=== PATIENT | female | born 1985 | race Caucasian/White ===

== ENCOUNTER → 2016-08-19 | Outpatient (REF) | payer OTHER ==
[~2016-08-19] MED LIST: IBUP80TA PO; PRENTAB66 PO; TYLE325T5 PO; ZANTTAB PO
== END ==
LOC: M LAB REF 13:01
PROVIDERS: ATTEND Specialist
DX: Z34.83 Encounter for supervision of other normal pregnancy, third trimester (principal)

== ENCOUNTER 2016-09-08 06:42 | Inpatient (IN) | payer OTHER ==
[2016-09-08] VITALS (11 sets, daily range): BP systolic 108–131; BP diastolic 66–78
[~2016-09-08] VITALS: Ht 170.2 cm; Wt 86.0 kg
[2016-09-08] MEDS ORDERED: PREV15CA11 PO (06:48)
[2016-09-08] MEDS ORDERED: IRON65TA PO (06:48)
[2016-09-08] MEDS ORDERED: miSOPROStol 50 MCG 1/2 TAB (S0191) PO SCH (07:45)
--- NOTE | 2016-09-08 07:53 | HPE ---
DATE OF ADMISSION: 09/08/2016 30-year-old 3, para 1-1-0-1 female at 38 and 3 by last menstrual period (LMP) consistent with a six week ultrasound, estimated date of confinement (EDC) 09/19/2016 presents for labor induction. Indication is a history of a near term intrauterine demise (IUFD) in her previous . The cause of the intrauterine demise previously was unknown. COURSE: The patient initiated care at 13 weeks gestation. Her blood pressure was 130/82. Weight 180 pounds. course was unremarkable. She did have antepartum testing with nonstress tests on a regular basis due to the history of IUFD. She had ultrasound for growth which showed adequate growth. OBSTETRICAL HISTORY: 1. June 2013, 39 weeks, vaginal delivery 6 pound 9 ounce female , no complications. 2. August 2014, 36 and 2/7 weeks, vaginal delivery 7 pound male . This was an intrauterine demise. MEDICAL HISTORY: 1. Depression and anxiety. SURGERIES: None. ALLERGIES: No known drug allergies. SOCIAL HISTORY: The patient is . She denies cigarettes, alcohol or drug use. FAMILY HISTORY: Noncontributory. PHYSICAL EXAMINATION: Blood pressure 118/72, weight 200 pounds. She is in no apparent distress. Head and neck exams normal. Lungs clear. Heart regular rate and rhythm. Abdomen nontender, gravid. heart tones category 1. Cervix 3 cm, 70%, -2 station, posterior, vertex. Extremities nontender. LABORATORIES: Blood type A positive. Rubella immune. RPR nonreactive. Hepatitis B and C negative. HIV negative. Group B Streptococcus (GBS) negative on 08/19/2016. ASSESSMENT: 30-year-old G3, P1 female at 38 and 3, with history of intrauterine demise in a prior , presents for labor induction. Patient on 09/08/2016. The risks of induction were discussed.
[2016-09-08 08:30] LABS: MEAN CORPUSCULAR HEMOGLOBIN 28.1 pg (27.0-33.0); MEAN CORPUSCULAR HGB CONC 33.5 g/dl (32.0-36.5); MEAN CORPUSCULAR VOLUME 83.8 fl (80.0-96.0); RED CELL DISTRIBUTION WIDTH 14.6 % (11.5-14.5); WHITE BLOOD COUNT 8.2 K/mm3 (4.0-10.0)
[2016-09-08] MEDS ORDERED: OXYTOCIN 30 UNITS IN 0.9% NaCl 500ML IV BAG (J2590) As Ordered ONE (11:40)
[2016-09-08] MEDS ORDERED: OXYTOCIN DRIP 30 UNITS in APPROPRIATE DILUENT 1 EA IV SCH (11:45)
[2016-09-08] MEDS: LR 1,000 ML IV SCH ×2 (11:46→17:13)
[2016-09-08] MEDS ORDERED: FENTANYL 2MCG/ML ROPIVACAINE 0.2% NACL 250 ML CADD As Ordered ONE (16:51)
[2016-09-08] MEDS ORDERED: LACTATED RINGER'S 1000 ML IV PRN (18:30)
[2016-09-08] MEDS ORDERED: ONDANSETRON 4MG/2ML VIAL (J2405) IV PRN ×2 (18:30→21:45)
[2016-09-08] MEDS ORDERED: FENTANYL/ROPIVACAINE/NACL CADD 250 ML EPIDURAL SCH (18:30)
[2016-09-08] MEDS ORDERED: NALOXONE INJ 0.4 MG/1 ML VIAL (J2310) IV PRN (18:30)
[2016-09-08] MEDS ORDERED: EPIDURAL/PCA KEYS XX PRN (18:30)
[2016-09-08] MEDS ORDERED: ePHEDrine SULFATE 25 MG/5 ML(5MG/ML) SYRINGE IV PRN (18:30)
[2016-09-08] MEDS ORDERED: diphenhydrAMINE INJ 50MG/ML VIAL (J1200) IV PRN (18:30)
[2016-09-08] MEDS ORDERED: EPIDURAL COMMENT XX SCH (18:30)
[2016-09-08] MEDS ORDERED: REFRIGERATOR IV KEYS XX PRN (18:30)
[2016-09-08] MEDS ORDERED: ACETAMINOPHEN 500 MG TAB PO PRN (21:45)
[2016-09-08] MEDS ORDERED: MEASLES,MUMPS,RUBELLA VACCINE INJ (MMR-II) (90707) SC SCH (21:45)
[2016-09-08] MEDS ORDERED: OXYTOCIN DRIP 30 UNITS in APPROPRIATE DILUENT 1 EA IV ONE (21:45)
[2016-09-08] MEDS ORDERED: DOCUSATE SODIUM 100 MG CAP PO PRN (21:45)
[2016-09-08] MEDS ORDERED: DIBUCAINE 1% OINTMENT 30GM TOP PRN (21:45)
[2016-09-08] MEDS ORDERED: RHOGAM 300 MCG (1500 IU) INJ (J2790) IM SCH (21:45)
[2016-09-08] MEDS ORDERED: METHYLERGONOVINE MALEATE 0.2 MG TAB PO PRN (21:45)
[2016-09-09] MEDS: IBUPROFEN 800 MG TAB PO PRN ×2 (05:51→15:48)
[2016-09-09 05:57] VITALS: BP 135/67
--- NOTE | 2016-09-09 05:57 | DN ---
DATE OF DELIVERY: 09/08/2016 PREDELIVERY DIAGNOSIS: 38-3/7 weeks gestation, history of prior intrauterine demise. POST DELIVERY DIAGNOSIS: Delivered. PROCEDURE: Spontaneous vaginal delivery. SILK SPOTTER: Dr. Tyree Jara ANESTHESIA: Epidural. ESTIMATED BLOOD LOSS: 300 mL. FINDINGS: 7 pound 1 ounce male , Apgars 9/10. DELIVERY SUMMARY: After a short second stage, the patient spontaneously delivered a 7 pound 1 ounce male under epidural anesthesia. There was no nuchal cord. Shoulders delivered spontaneously with ease. The infant cried spontaneously and was handed to the mother. The cord was doubly clamped and cut. The placenta delivered spontaneously and appeared to be intact. Patient received IV Pitocin immediately after delivery of the placenta. There were no vaginal lacerations present. Sponge counts were correct.
[2016-09-09] MEDS: PRENATAL VITAMIN TAB PO SCH (08:10)
[2016-09-09 10:00] VITALS: BP 128/70
[2016-09-09 14:00] VITALS: BP 116/57
[2016-09-09] MEDS: PERCOCET 5MG/325MG TAB PO PRN ×2 (16:58→20:50)
[2016-09-09 17:58] VITALS: BP 133/68
[2016-09-10] MEDS: IBUPROFEN 800 MG TAB PO PRN ×2 (02:45→11:01)
[2016-09-10] MEDS: PERCOCET 5MG/325MG TAB PO PRN ×3 (03:46→14:05)
[2016-09-10 05:55] VITALS: BP 132/61
[2016-09-10] MEDS ORDERED: HYDR-3713 PO (07:00)
[2016-09-10] MEDS: PRENATAL VITAMIN TAB PO SCH (08:18)
[2016-09-10] MEDS ORDERED: OXYC1TAB23 PO (08:25)
[2016-09-10] MEDS ORDERED: IBUP-1114 PO (08:25)
[2016-09-10] MEDS ORDERED: IBUP600T26 PO (09:10)
[2016-09-10] MEDS ORDERED: COLA100C PO (09:11)
== END 2016-09-10 16:05 | disposition home or self-care (01) | DRG 775 ==
LOC: M LDI 06:42 → M OBS 23:20
PROVIDERS: ADMIT Advanced Practice Midwife; ATTEND Specialist
PROC: 10E0XZZ Delivery of Products of Conception, External Approach (ICD-10-PCS; principal; 2016-09-08)
PROC: 3E033VJ Introduction of Other Hormone into Peripheral Vein, Percutaneous Approach (ICD-10-PCS; 2016-09-08)
DX: O80 Encounter for full-term uncomplicated delivery (principal); Z3A.38 38 weeks gestation of pregnancy; Z37.0 Single live birth

== ENCOUNTER → 2019-03-07 | Outpatient (REF) | payer OTHER ==
[~2019-03-07] MED LIST changes: +COLA100C5 PO; +HYDR-3713 PO; +IBUP-1022 PO; +IBUP-1114 PO; +IRON65TA PO; +OXYC1TAB23 PO; +PREV15CA18 PO
[2019-03-11 14:09] LABS: HPV HYBRID CAPTURE II Negative (Negative)
== END ==
LOC: M LAB REF 13:40
PROVIDERS: ATTEND Specialist
DX: Z12.4 Encounter for screening for malignant neoplasm of cervix (principal)

== ENCOUNTER → 2019-06-05 | Outpatient (REF) | payer OTHER ==
[2019-06-05 17:26] LABS: BASO % 0.9 % (0.0-1.0); EOS % 0.7 % (0.0-3.0); HEMATOCRIT 42.3 % (36.0-47.0); HEMOGLOBIN 13.4 g/dl (12.0-15.5); LYMPH # 2.2 10^3/uL (1.5-5.0); LYMPH % 49.3 % (24.0-44.0); MEAN CORPUSCULAR HEMOGLOBIN 29.1 pg (27.0-33.0); MEAN CORPUSCULAR HGB CONC 31.7 g/dl (32.0-36.5); MONO # 0.3 10^3/uL (0.0-0.8); MONO % 6.4 % (0.0-5.0); NEUTROPHILS # 1.9 10^3/uL (1.5-8.5); NEUTROPHILS % 42.3 % (36.0-66.0); PLATELET COUNT, AUTOMATED 305 10^3/uL (150-450); WHITE BLOOD COUNT 4.5 10^3/uL (4.0-10.0)
[2019-06-05 17:28] LABS: ALBUMIN 4.1 GM/DL (3.2-5.2); ALT/SGPT 45 U/L (12-78); BILIRUBIN,TOTAL 0.3 MG/DL (0.2-1.0); BLOOD UREA NITROGEN 11 MG/DL (7-18); CALCIUM LEVEL 9.6 MG/DL (8.5-10.1); CARBON DIOXIDE LEVEL 28 MEQ/L (21-32); CHLORIDE LEVEL 106 MEQ/L (98-107); CHOLESTEROL LEVEL 175 MG/DL (<200); CREATININE FOR GFR 0.85 MG/DL (0.55-1.30); FREE T4 0.97 NG/DL (0.76-1.46); GLOMERULAR FILTRATION RATE > 60.0 (>60); GLUCOSE, FASTING 93 MG/DL (70-100); HDL CHOLESTEROL 50 MG/DL (>40); LDL CHOLESTEROL 97 MG/DL (<100); NON-HDL-C 125 MG/DL; POTASSIUM SERUM 4.2 MEQ/L (3.5-5.1); SODIUM LEVEL 140 MEQ/L (136-145); TOTAL PROTEIN 8.5 GM/DL (6.4-8.2); TRIGLYCERIDES LEVEL 141 MG/DL (<150)
[2019-06-05 17:29] LABS: TOTAL 25(OH) VITAMIN D 23.6 NG/ML (30.0-100.0)
== END ==
LOC: M SFHCLERA 10:21
PROVIDERS: ATTEND Physician Assistant
DX: Z13.220 Encounter for screening for lipoid disorders (principal); F41.8 Other specified anxiety disorders; Z13.21 Encounter for screening for nutritional disorder

== ENCOUNTER → 2020-03-26 | Outpatient (REF) | payer OTHER ==
[2020-04-28 11:06] LABS: BASO % 0.5 % (0.0-1.0); EOS % 0.1 % (0.0-3.0); HEMATOCRIT 39.6 % (36.0-47.0); HEMOGLOBIN 12.6 g/dl (12.0-15.5); LYMPH # 1.6 10^3/uL (1.5-5.0); LYMPH % 19.8 % (24.0-44.0); MEAN CORPUSCULAR HEMOGLOBIN 28.3 pg (27.0-33.0); MEAN CORPUSCULAR HGB CONC 31.8 g/dl (32.0-36.5); MONO # 0.4 10^3/uL (0.0-0.8); MONO % 5.3 % (0.0-5.0); NEUTROPHILS # 5.9 10^3/uL (1.5-8.5); NEUTROPHILS % 73.9 % (36.0-66.0); PLATELET COUNT, AUTOMATED 338 10^3/uL (150-450); RED BLOOD COUNT 4.45 10^6/uL (4.00-5.40); WHITE BLOOD COUNT 7.9 10^3/uL (4.0-10.0)
[2020-05-05 13:35] LABS: CHLAMYDIA DNA AMPLIFICATION NEGATIVE (NEGATIVE); GC DNA AMPLIFICATION NEGATIVE (NEGATIVE)
[2020-05-11 10:23] LABS: HEPATITIS C VIRUS ABY INDEX 0.2 INDEX (<0.8); HIV 1&2 SCREEN CENTAUR NEGATIVE (NEGATIVE)
== END ==
LOC: M SFHCWAGY 08:12
PROVIDERS: ATTEND Specialist
DX: Z34.81 Encounter for supervision of other normal pregnancy, first trimester (principal)

== ENCOUNTER → 2020-06-07 | Outpatient (CLI) | payer OTHER ==
--- NOTE | 2020-06-07 13:41 | REP ---
INDICATION: ANATOMY COMPARISON: None. TECHNIQUE: Transabdominal obstetrical ultrasound with color Doppler evaluation. FINDINGS: Examination demonstrates a single live intrauterine in cephalic presentation. motion is identified by technologist. Placenta is noted anterior and grade 1 without evidence for placenta previa or abruption. Amniotic fluid volume is normal. Cervix measures 3.0 cm in length and appears closed.. Gestational age by LMP with VARINDER . Gestational age by current measurements 20 weeks 0 days with VARINDER 10/25/2020. FHR equals 143 beats per minute. BPD: 4.6 cm 20 weeks 0 days HC: 16.8 cm 19 weeks 3 days AC: 14.5 cm 19 weeks 5 days FL: 3.4 cm 20 weeks 5 days HL: 3.0 cm nineteen weeks 6 days HC/AC: 1.16 Estimated weight 332 grams (54thpercentile). Anatomical assessment demonstrates normal structures including cranium, choroid plexus, cavum, cerebellum/posterior fossa, facial features, lungs, four-chamber heart/ventricular outflow tracts, diaphragm, stomach, cord insertion/three-vessel cord, kidneys/bladder, spine, and extremities. IMPRESSION: Single live intrauterine in cephalic presentation demonstrating appropriate estimated weight. Anatomical assessment is complete and normal. <Electronically signed by Clem Shay > 06/07/20 [id number]
== END ==
LOC: M WHC 10:16
PROVIDERS: ATTEND Specialist
DX: Z34.82 Encounter for supervision of other normal pregnancy, second trimester (principal)

== ENCOUNTER → 2020-07-24 | Outpatient (REF) | payer OTHER ==
[2020-07-24 13:49] LABS: HEMOGLOBIN 10.4 g/dl (12.0-15.5); MEAN CORPUSCULAR HGB CONC 31.5 g/dl (32.0-36.5); MEAN CORPUSCULAR VOLUME 88.9 fl (80.0-96.0); PLATELET COUNT, AUTOMATED 272 10^3/uL (150-450); RED BLOOD COUNT 3.71 10^6/uL (4.00-5.40); WHITE BLOOD COUNT 8.7 10^3/uL (4.0-10.0)
== END ==
LOC: M PLALAB 09:23
PROVIDERS: ATTEND Specialist
DX: Z34.82 Encounter for supervision of other normal pregnancy, second trimester (principal); Z3A.00 Weeks of gestation of pregnancy not specified

== ENCOUNTER → 2020-07-31 | Outpatient (CLI) | payer OTHER ==
--- NOTE | 2020-07-31 12:52 | REP ---
INDICATION: GROWTH. COMPARISON: None. TECHNIQUE: Multiple ultrasonographic images of the gravid uterus. FINDINGS: There is a single intrauterine gestation in a cephalic presentation. The placenta is anterior with grade 2 maturity. There is no placenta previa. The cervix measures 3.3 cm length. heart rate is 147 beats per minute. Amniotic fluid volume subjectively is normal. biophysical profile: breathing 2 tone 2 movement 2 Amniotic fluid volume 2 Total BPP-8/8. Gestational age by ultrasound today is 27 weeks 3 days with an VARINDER of 10/27/2020. Gestational age by the 1st ultrasound is 27 weeks 5 days with an VARINDER of 10/25/2020 Estimated weight is 1000 g, 2 lb-3 oz. This is the 15th percentile for 27 weeks 5 days. Umbilical artery 1 Doppler ultrasound: PSV: 32.9 centimeters/second, EDV 13.2 centimeters/second. S/D 2.49 (2.12-4.41). Resistive index 0.60 (0.55-0.78). Umbilical artery 2 Doppler ultrasound: PSV 34.2 centimeters/second EDV 10.6 centimeters/second. S/D 3.23 (2.12-4.41). Resistive index 0.69 ( 0.55-0.78). IMPRESSION: Intrauterine gestation with dating, biophysical profile and umbilical artery Doppler assessment as above. <Electronically signed by Bryan Gan > 07/31/20 [id number]
== END ==
LOC: M WHC 08:12
PROVIDERS: ATTEND Obstetrics & Gynecology
DX: O09.292 Supervision of pregnancy with other poor reproductive or obstetric history, second trimester (principal); Z3A.27 27 weeks gestation of pregnancy

== ENCOUNTER 2020-09-05 10:41 | Outpatient (CLI) | payer OTHER ==
[~2020-09-05] VITALS: Ht 170.2 cm; Wt 90.0 kg
[2020-09-05 11:03] VITALS: BP 122/78
[2020-09-05] MEDS ORDERED: PRENTAB9 PO (11:19)
[2020-09-05] MEDS ORDERED: OMEP40CA97 PO (11:19)
[2020-09-05] MEDS ORDERED: PROZ10CA7 PO (11:19)
--- NOTE | 2020-09-05 12:14 | HPEPDOC ---
Obstetrical History & Physical General Date of Admission 09/05/20 History of Present Illness Subjective/HPI: 34-year-old at 32+6 weeks' gestation. Final EDC of 10/25/2020 by LMP consistent with a first trimester ultrasound. Presents today complaining of pink tinged vaginal discharge noted with wiping after using the restroom. Denies any bright red vaginal bleeding, passage of blood clots, or loss of fluid. Reports regular movement. She is not complaining of any uterine contractions or abdominal/pelvic pain Denies headach e, visual changes, shortness of breath, chest pain. Denies any recent intercourse. course significant for history of stillborn at 36 weeks in 2015. PMH/SH: depression/anxiety, no surgeries, no h/o cervical dysplasia. H/o STI/CT treated. Objective: Normotensive. Normal heart rate. Afebrile Abdomen soft, nontender, nondistended. Uterine fundus , nontender. Extremities nonedematous, nontender Pelvic: Sterile speculum exam reveals no pooling, no vaginal bleeding, no abnormal discharge or foul odor. Sterile vaginal/cervical exam reveals a closed long thick cervix. Ectropion cervix is friable/bleeding induced with contact Transvaginal ultrasound, limited: Cervical length 3.6 cm. No dynamic changes/funneling. Transabdominal ultrasound, limited: Cephalic presentation, MVP 5.5 cm, multiple 2 x 2 centimeters pockets of fluid EFM: Reactive, moderate variability, no decelerations [place]: No contractions Assessment/plan: 34 year-old at 32+6 weeks' gestation. No evidence of infection, premature ruptured membranes, active labor, advanced cervical dilation, or shortened cervical length. Current maternal and condition is reassuring. -Routine third trimester precautions were reviewed -Follow-up in the office as scheduled Past Medical History Allergies Coded Allergies: No Known Allergies (Unverified , 06/20/13) Medications Scheduled Fluoxetine HCl (Prozac) 10 Mg Capsule, 1 CAP PO DAILY Omeprazole (Omeprazole) 40 Mg Capsule.dr, 40 MG PO DAILY No.137/Iron/Folic Acd ( Vitamin Tablet) 1 Each Tablet, 1 TAB PO DAILY Physical Examination Vital Signs/I&O Vital Signs Date Time Temp Pulse Resp B/P (MAP) Pulse Ox O2 Delivery O2 Flow Rate FiO2 09/05/20 11:03 98.0 92 16 122/78 (93) CLAUDE DREW DO Sep 05, 2020 12:14
== END 2020-09-05 12:04 | disposition home or self-care (01) ==
LOC: M LDO 10:41
PROVIDERS: ATTEND Obstetrics & Gynecology
DX: O26.853 Spotting complicating pregnancy, third trimester (principal); Z3A.01 Less than 8 weeks gestation of pregnancy
CPT/HCPCS: 59025; 76815; G0378; G0463

== ENCOUNTER → 2020-09-06 | Outpatient (CLI) | payer OTHER ==
[~2020-09-06] MED LIST changes: +OMEP40CA97 PO; +PRENTAB9 PO; +PROZ10CA7 PO
--- NOTE | 2020-09-06 15:13 | REP ---
INDICATION: POOR OBSTETRICAL HX,GROWTH. COMPARISON: Comparison study July.. TECHNIQUE: Transabdominal obstetric sonography. FINDINGS: Scanning through the gravid uterus demonstrates a viable single intrauterine gestation in cephalic lie. motion is observed and heart rate is recorded at 134 beats per minute. A anterior placenta is seen, grade 2, without evidence of placenta previa. Amniotic fluid is subjectively normal. Closed cervical length is measured at 3.1 cm transabdominally. No extrauterine abnormality is observed. Amniotic fluid is subjectively normal. JUWAN is normal at 18.2 cm anatomic survey is not performed with this exam.. Biometry chart: BPD 8.2 cm, 32 weeks 6 days Head circumference 30.2 cm, 33 weeks 4 days Abdominal circumference 27.8 cm, 31 weeks 6 days Femur length 6.2 cm, 32 weeks 2 days Humeral length 5.7 cm, 33 weeks 0 days HC AC ratio normal 1.09 Cephalic index normal 0.75 Estimated weight 1927 g, 4 lb 3 oz, 21st percentile for 33 weeks 0 days IMPRESSION: Viable single intrauterine gestation at 32 weeks 5 days by today's composite sonographic criteria. VARINDER by today's sonography October 27, 2020. No complication identified. Expected gestational age estimate based on prior sonography is 33 weeks 0 days. VARINDER by prior sonography October 25, 2020. <Electronically signed by Troy Hopkins > 09/06/20 [id number]
== END ==
LOC: M WHC 08:57
PROVIDERS: ATTEND Obstetrics & Gynecology
DX: O09.293 Supervision of pregnancy with other poor reproductive or obstetric history, third trimester (principal); Z36.9 Encounter for antenatal screening, unspecified; Z3A.32 32 weeks gestation of pregnancy

== ENCOUNTER → 2020-09-25 | Outpatient (REF) | payer OTHER | LOC: M SFHCWAGY 11:35 | PROVIDERS: ATTEND Specialist | DX: O09.93 Supervision of high risk pregnancy, unspecified, third trimester (principal) ==

== ENCOUNTER 2020-10-10 07:09 | Inpatient (IN) | payer OTHER ==
[~2020-10-10] VITALS: Ht 170.2 cm; Wt 90.4 kg
[2020-10-10] VITALS (26 sets, daily range): BP systolic 110–146; BP diastolic 57–86
--- OUTSIDE RECORDS SUMMARY | 2020-10-10 07:12 | CCD ---
Author Author [facility] Organization [facility] Address Unknown Phone Unavailable Care Team Providers Care Multifocal Button Generator Name Role Phone Shaniqua Mendeznathan Unavailable PROBLEMS Type Condition ICD9-CM Code [id number] Code Onset Dates Condition S tatus SNOMED Code Notes Problem Recurrent major depressive disorder, in partial remission F33.41 Active 73720965 Problem Intractable migraine without aura and without st atus migrainosus G43.019 Active 724986758 Problem Other chronic pain G89.29 Active 28693368 Problem Supervision of other normal Z34.80 Ac tive 789703341 Problem Anemia affecting in third trimester O99. 013 Active 45227531 Problem Anxiety with depression F41.8 Active 04661726 6 Problem Adjustment disorder with depressed mood F43.21 Active 90577795 Problem Generalized anxiety disorder F41.1 Active 218 25736 Problem Major depressive disorder, recurrent, mild F33.0 Active 637659752 ALLERGIES No Known Allergies ENCOUNTERS from 1986 to 2020-09-06 Encounter Location Date Provider Diagnosis [facility] [place] [address] Aug, Rigoberto Mendez IMMUNIZATIONS Vaccine Route Administration Date Status TDAP 0.5mL (Boostrix) IM Intramuscular Aug 30, 2020 Administe red Influenza (6mo & up) Fluzone IM Intramuscular Aug 30, 2020 Ad ministered SOCIAL HISTORY Tobacco Use: Social History Observation Description Date Details (start date - stop date) Never Smoker Sex Assigned At : Social History Observation Description Sex Assigned At Unknown Education: Question Answer Notes Level of Education: Finished College Language: Question Answer Notes Languages spoken: Kosovan Languages spoken: Kosovan Mu-Ism: Question Answer Notes Mu-Ism 33 None Mu-Ism 33 None Drug and Alcohol Question Answer Notes Total Score: 0 Interpretation: No problems reported Alcohol Screening: Question Answer Notes Did you have a drink containing alcohol in the past year? No Did you have a drink containing alcohol in the past year? No Points 0 Points 0 Interpretation Negative Interpretation Negative Tobacco Use: Question Answer Notes Are you a: never smoker Are you a: never smoker REASON FOR REFERRAL No Information VITAL SIGNS No information MEDICATIONS Medication SIG (Take, Route, Frequency, Duration) Notes Start Da te End Date Status PROzac 10 MG 1 capsule Orally Once a day for 30 day(s) Aug, Active Ondansetron 4 MG 1 tablet on the tongue and a llow to dissolve Orally Once a day for 30 day(s) May, Not-Taking Pepcid 20 MG 1 tablet at bedtime as needed Orally Once a day for 30 day(s) May, Not-Taking Clomid 1 tab orally 5xmonth Not- Taking 27-1 MG 1 tablet Orally Once a day Active ClomiPHENE Citrate 50 MG 2 tablets Orally Once a day for 5 day(s ) Jul, Not-Taking Stool Softener 100 MG 1 capsule as needed for constipation O rally twice per day Aug, Active Ferrous Gluconate 324 (38 Fe) MG 1 tablet with water o r juice between meals Orally Twice per day for 30 day(s) Aug, Active Diflucan 150 MG 1 tablet Orally once for 1 day(s) Jul, Not-Taking Wellbutrin SR 150 MG 1 tablet in the morning Orally Once a day f or 30 day(s) Mar, Not-Taking Zoloft 50 MG 1 tablet Orally Once a day for 30 day(s) 2018 Not-Taking Omeprazole 40 MG 1 capsule 30 minutes before morning meal Orally Once a day for 30 day(s) Jul, Active PROCEDURES No Information RESULTS No Results REASON FOR VISIT bleeding MEDICAL (GENERAL) HISTORY Type Description Date Medical History Anxiety and Depression Medical History Infertility Surgical History No know Surgical history Hospitalization History child Goals Section No Information Health Concerns No Information MEDICAL EQUIPMENT No Information MENTAL STATUS No Information FUNCTIONAL STATUS No Information ASSESSMENTS No Information PLAN OF TREATMENT Medication Medication Name Sig Start Date Stop Date Ferrous Gluconate 324 (38 Fe) MG 1 tablet with water o r juice between meals Orally Twice per day for 30 day(s) Aug, PROzac 10 MG 1 capsule Orally Once a day for 30 day(s) Aug Stool Softener 100 MG 1 capsule as needed for constipation O rally twice per day Aug, Next Appt Details Provider Name:Rigoberto Mendez, 12:45:00 AM, [address] [place] [address], [phone], Provider Name:Kaitlyn Dumont, 2020-09 10:20:00 AM, [address] [place] [address], [phone], Provider Name:Tyree Jara, 2020-09-24 11:20:00 AM, [address] [place] [address], [phone], Provider Name:Tyree Jara, 2020-10-02 10:40:00 AM, [address] [place] [address], [phone], Provider Name:Rigoberto Mendez, 11:00:00 AM, [address] [place] [address], [phone], Insurance Providers Payer Name Payer Address Payer Phone Insured Name Patient Relati onship to Insured Coverage Start Date Coverage End Date AETNA [facility] [address] [facility] [id number] JUNE GUERRERO
--- OUTSIDE RECORDS SUMMARY | 2020-10-10 07:12 | CCD ---
Author Author [facility] Organization [facility] Address Unknown Phone Unavailable Care Team Providers Care Moisture Machine Tender Name Role Phone Tyree Jara Unavailable PROBLEMS Type Condition ICD9-CM Code [id number] Code Onset Dates Condition S tatus W/U Status Risk SNOMED Code Notes Problem Recurrent major depressive disorder, in partial remission F33.41 Active confirmed 79398743 Problem Intractable migraine without aura and without st atus migrainosus G43.019 Active confirmed 164065713 Problem Other chronic pain G89.29 Active confirmed 8 4743327 Problem Supervision of other normal Z34.80 Ac tive confirm 946209997 Problem Anemia affecting in third trimester O99. 013 Active confirmed 99865833 Problem Anxiety with depression F41.8 Active confirmed 358447076 Problem Adjustment disorder with depressed mood F43.21 Active confirmed 37215585 Problem Generalized anxiety disorder F41.1 Active confirme d 00681517 Problem Major depressive disorder, recurrent, mild F33.0 Active confirmed 033491178 ALLERGIES No Known Allergies ENCOUNTERS from 1986 to 2020-09-28 Encounter Location Date Provider Diagnosis [facility] [address] [place] [phone] 09 Sep, 2020 Tyree Jara High risk due to history of previous obstetrical problem in third trimester O09.293 IMMUNIZATIONS Vaccine Route Administration Date Status TDAP [...] College Language: Question Answer Notes Languages spoken: Guinean Languages spoken: Guinean Jewish: Question Answer Notes Jewish 33 None Jewish 33 None Drug and Alcohol Question Answer [...] REASON FOR REFERRAL No Information VITAL SIGNS Weight 200 lbs Sep, Weight-kg 90.72 kg Sep, Height 68.4 in Sep, BMI 30.055 kg/m2 Sep, Blood pressure systolic 138 mm Hg Sep, Blood pressure diastolic 94 mm Hg Sep, MEDICATIONS Medication SIG (Take, Route, Frequency, Duration) Notes Start Da te End Date Status Ondansetron 4 MG 1 tablet on the tongue and a llow to dissolve Orally Once a day for 30 day(s) May, Not-Taking ClomiPHENE Citrate 50 MG 2 tablets Orally Once a day for 5 day(s ) Jul, Not-Taking Stool Softener 100 MG 1 capsule as needed for constipation O rally twice per day Aug, Active Omeprazole 40 MG 1 capsule 30 minutes before morning meal Orally Once a day for 30 day(s) Jul, Active 27-1 MG 1 tablet Orally Once a day Active Clomid 1 tab orally 5xmonth Not- Taking PROzac 10 MG 1 capsule Orally Once a day for 30 day(s) Aug, Active Diflucan 150 MG 1 tablet Orally once for 1 day(s) Jul, Not-Taking Ferrous Gluconate 324 (38 Fe) MG 1 tablet with water o r juice between meals Orally Twice per day for 30 day(s) Aug, Active Pepcid 20 MG 1 tablet at bedtime as needed Orally Once a day for 30 day(s) May, Not-Taking Wellbutrin SR 150 MG 1 tablet in the morning Orally Once a day f or 30 day(s) Mar, Not-Taking Zoloft 50 MG 1 tablet Orally Once a day for 30 day(s) 12 A ug, 2019 Not-Taking PROCEDURES from 1986 to 2020-09-28 Procedure Date Ordered Result Body Site non-stress test 2020-09-24 N/A RESULTS Component Value Reference Range GROUP B STREP CULTURE Reviewed date:09/25/2020 10:19:45 Interpretation: Performing Lab:[facility] [place] [address] GROUP B STREP CULTURE REASON FOR VISIT 1WK PN / NST MEDICAL (GENERAL) HISTORY Type Description Date Medical History Anxiety and Depression Medical History Infertility Surgical History No Surgical history information Hospitalization History child Goals Section No Information Health Concerns No Information MEDICAL EQUIPMENT No Information MENTAL STATUS No Information FUNCTIONAL STATUS No Information ASSESSMENTS Encounter Date Diagnosis Assessment Notes Treatment Notes Treatm ent Clinical Notes Sep, High risk due to h istory of previous obstetrical problem in third trimester (ICD-10 - O09.293) PLAN OF TREATMENT Treatment Notes Test Name Order Date GROUP B STREP CULTURE 2020-09-24 Next Appt Details Provider Name:Tyree Jara, 2020-10-02 10:40:00 AM, [address] [place] [address], [phone], Provider Name:Rigoberto Mendez, 11:00:00 AM, [address] [place] [address], [phone], Insurance Providers Payer Name Payer Address Payer Phone Insured Name Patient Relati onship to Insured Coverage Start Date Coverage End Date AETNA [facility] [address] [facility] [id number] JUNE GUERRERO
--- OUTSIDE RECORDS SUMMARY | 2020-10-10 07:12 | CCD ---
Author Author [facility] Organization [facility] Address Unknown Phone Unavailable Care Team Providers Care Patient Safety Tech Name Role Phone Tyree Jara Unavailable PROBLEMS Type Condition ICD9-CM Code [id number] Code Onset Dates Condition S tatus SNOMED Code Notes Problem Recurrent major depressive disorder, in partial remission F33.41 Active 98409042 Problem Intractable migraine without aura and without st atus migrainosus G43.019 Active 237564879 Problem Major depressive disorder, recurrent, mild F33.0 Active 708961116 Problem Supervision of other normal Z34.80 Ac tive 541923804 Problem Other chronic pain G89.29 Active 81071601 Problem Anxiety with depression F41.8 Active 48214969 6 Problem Adjustment disorder with depressed mood F43.21 Active 52819378 Problem Generalized anxiety disorder F41.1 Active 218 91908 ALLERGIES No Known Allergies ENCOUNTERS from 1986 to 2020-07-24 Encounter Location Date Provider Diagnosis [facility] [place] [address] 13 Jun, 2020 Tyree Jara Encounter for pregna ncy related examination in second trimester Z34.82 and 23 weeks gestation of Z3A.23 IMMUNIZATIONS No Information SOCIAL HISTORY Tobacco Use: Social History Observation Description Date Details (start date - stop date) Never Smoker Sex Assigned At : Social History Observation Description Sex Assigned At Unknown Education: Question Answer Notes Level of Education: Finished College Language: Question Answer Notes Languages spoken: Tamazight Languages spoken: Tamazight Mormon: Question Answer Notes Mormon 33 None Mormon 33 None Drug and Alcohol Question Answer [...] FOR REFERRAL No Information VITAL SIGNS Weight 186.8 lbs Jun, Weight-kg 84.73 kg Jun, Height 68.4 in Jun, BMI 28.072 kg/m2 Jun, Blood pressure systolic 110 mm Hg Jun, Blood pressure diastolic 70 mm Hg Jun, MEDICATIONS Medication SIG (Take, Route, Frequency, Duration) Notes Start Da te End Date Status Clomid 1 tab orally 5xmonth Not- Taking Omeprazole 40 MG 1 capsule 30 minutes before morning meal Orally Once a day for 30 day(s) Jul, Active ClomiPHENE Citrate 50 MG 2 tablets Orally Once a day for 5 day(s ) Jul, Not-Taking Ondansetron 4 MG 1 tablet on the tongue and a llow to dissolve Orally Once a day for 30 day(s) May, Not-Taking Wellbutrin SR 150 MG 1 tablet in the morning Orally Once a day f or 30 day(s) Mar, Not-Taking Pepcid 20 MG 1 tablet at bedtime as needed Orally Once a day for 30 day(s) May, Active Zoloft 50 MG 1 tablet Orally Once a day for 30 day(s) 2018 Not-Taking 27-1 MG 1 tablet Orally Once a day Active PROCEDURES No Information RESULTS Component Value Reference Range Type and Screen (D Rh Antibody Screen) Reviewed date:07/29/2020 09:24:48 Interpretation: Performing Lab:[facility] [address] [place] [id number] , ,[place] [address] BLOOD TYPE A POSITIVE AB SCREEN (INDIRECT HARPAL)VIS NEGATIVE CBC - Complete Blood Count Reviewed date:07/29/2020 09:24:44 Interpretation: Performing Lab:[facility] [address] [place] [address] , ,[place] [address] WHITE BLOOD COUNT 8.7 4.0-10.0 RED BLOOD COUNT 3.71 4.00-5.40 HEMOGLOBIN 10.4 12.0-15.5 HEMATOCRIT 33.0 36.0-47.0 MEAN CORPUSCULAR VOLUME 88.9 80.0-96.0 MEAN CORPUSCULAR HEMOGLOBIN 28.0 27.0-33.0 MEAN CORPUSCULAR HGB CONC 31.5 32.0-36.5 RED CELL DISTRIBUTION WIDTH 12.5 11.5-14.5 PLATELET COUNT, AUTOMATED 272 150-450 Glucose Challenge Test 1 Hour Reviewed date:07/29/2020 09:24:52 Interpretation: Performing Lab:[facility], [facility] [address] [facility] [address] , ,[place] [address] GLUCOSE CHALLENGE TEST 1 HOUR 97 LESS THAN 140 REASON FOR VISIT 4 WK PN MEDICAL (GENERAL) HISTORY Type Description Date Medical History Anxiety and Depression Medical History Infertility Surgical History No know Surgical history Hospitalization History child Goals Section No Information Health Concerns No Information MEDICAL EQUIPMENT No Information MENTAL STATUS No Information FUNCTIONAL STATUS No Information ASSESSMENTS Encounter Date Diagnosis Assessment Notes Treatment Notes Treatm ent Clinical Notes Jun, Encounter for rela debbie examination in second trimester (ICD-10 - Z34.82) Jun, 23 weeks gestation of (ICD-10 - Z3A.23 ) PLAN OF TREATMENT Medication Medication Name Sig Start Date Stop Date Omeprazole 40 MG 1 capsule 30 minutes before morning meal Orally Once a day for 30 day(s) Jul, Treatment Notes Test Name Order Date CBC - Complete Blood Count 2020-07-24 AB SCREEN (INDIRECT HARPAL)GEL Antibody Screen 2020-07 Type and Screen (D Rh Antibody Screen) 2020-07-24 Glucose Challenge Test 1 Hour 2020-07-24 Next Appt Details Provider Name:Rigoberto Mendez, 08:20:00 AM, [address] [place], [phone], Insurance Providers Payer Name Payer Address Payer Phone Insured Name Patient Relati onship to Insured Coverage Start Date Coverage End Date AETNA [facility] [address] [facility] [id number] JUNE GUERRERO
--- OUTSIDE RECORDS SUMMARY | 2020-10-10 07:12 | CCD ---
Author Author [facility] Organization [facility] Address Unknown Phone Unavailable Care Team Providers Care Software Licensing Specialist Name Role Phone Sary Teague Unavailable PROBLEMS Type Condition ICD9-CM Code [id number] Code Onset Dates Condition S tatus SNOMED Code Notes Problem Recurrent major depressive disorder, in partial remission F33.41 Active 90237398 Problem Intractable migraine without aura and without st atus migrainosus G43.019 Active 052554780 Problem Other chronic pain G89.29 Active 91629226 Problem Supervision of other normal Z34.80 Ac tive 207521128 Problem Anemia affecting in third trimester O99. 013 Active 54742075 Problem Anxiety with depression F41.8 Active 67248041 6 Problem Adjustment disorder with depressed mood F43.21 Active 09598998 Problem Generalized anxiety disorder F41.1 Active 218 70560 Problem Major depressive disorder, recurrent, mild F33.0 Active 298653434 ALLERGIES No Known Allergies ENCOUNTERS from 1986 to 2020-09-07 Encounter Location Date Provider Diagnosis [facility] [address] [place] [address] 15 Aug, 2020 Sary Teague Supervision of pregn sandi with other poor reproductive or obstetric history, third trimester O09.293 ; 32 weeks gestation of Z3A.32 ; Encounter for immunization Z23 ; Anemia affecting pregna ncy in third trimester O99.013 ; Other mental disorders complicating , third trimester O99.343 and Major depressive disorder, single episode, unspecified F32.9 IMMUNIZATIONS Vaccine Route Administration Date Status TDAP [...] College Language: Question Answer Notes Languages spoken: Ivorian Languages spoken: Ivorian Bahai: Question Answer Notes Bahai 33 None Bahai 33 None Drug and Alcohol Question Answer [...] FOR REFERRAL No Information VITAL SIGNS Weight 196.6 lbs Aug, Height 68.4 in Aug, BMI 29.544 kg/m2 Aug, Blood pressure systolic 134 mm Hg Aug, Blood pressure diastolic 76 mm Hg Aug, MEDICATIONS Medication SIG (Take, Route, Frequency, Duration) [...] day for 30 day(s) Jul, Active PROCEDURES from 1986 to 2020-09-07 Procedure Date Ordered Result Body Site Immunization: Boostrix 0.5mL IM (TDAP) 2020-08-30 N/A Immunization: Fluzone (6mo & older) 0.5mL IM (Influenza) 2020-08 N/A non-stress test 2020-08-30 N/A RESULTS No Results REASON FOR VISIT 2WK PN / NST MEDICAL (GENERAL) HISTORY Type Description Date Medical History Anxiety and Depression Medical History Infertility Surgical History No know Surgical history Hospitalization History child Goals Section No Information Health Concerns No Information MEDICAL EQUIPMENT No Information MENTAL STATUS No Information FUNCTIONAL STATUS No Information ASSESSMENTS Encounter Date Diagnosis Assessment Notes Treatment Notes Treatm ent Clinical Notes Aug, Supervision of wit h other poor reproductive or obstetric history, third trimester (ICD-10 - O09.293) Aug, 32 weeks gestation of (ICD-10 - Z3A.32 ) Aug, Encounter for immunization (ICD-10 - Z23) Aug, Anemia affecting in third trimester (I CD-10 - O99.013) Aug, Other mental disorders compl icating , third trimester (ICD-10 - O99.343) Aug, Major depressive disorder, s herminia episode, unspecified (ICD-10 - F32.9) PLAN OF TREATMENT Medication Medication Name Sig [...] twice per day Aug, Next Appt Details 1 Week Reason:COB NST Provider Name:Rigoberto Mendez, 12:45:00 AM, [address] [place], [address], Provider Name:Kaitlyn Dumont, 2020-09 10:20:00 AM, [address] [place] [address], [phone], Provider Name:Tyree Jara, 2020-09-24 11:20:00 AM, [address] [place] [address], [phone], Provider Name:Tyree Jara, 2020-10-02 10:40:00 AM, [address] [place] [address], [phone], Provider Name:Rigoberto Mendez, 11:00:00 AM, [address] [place] [address], [phone], Follow Up:1 WeekCOB NST Insurance Providers Payer Name Payer Address Payer Phone Insured Name Patient Relati onship to Insured Coverage Start Date Coverage End Date AETNA [facility] [address] [facility] [id number] JUNE GUERRERO
--- OUTSIDE RECORDS SUMMARY | 2020-10-10 07:12 | CCD ---
Author Author [facility] Organization [facility] Address Unknown Phone Unavailable Care Team Providers Care Bakery Chef Name Role Phone Kaitlyn Dumont Unavailable PROBLEMS Type Condition ICD9-CM Code [id number] Code Onset Dates Condition S tatus W/U Status Risk SNOMED Code Notes Problem Recurrent major depressive disorder, in partial remission F33.41 Active confirmed 35229270 Problem Intractable migraine without aura and without st atus migrainosus G43.019 Active confirmed 332806122 Problem Other chronic pain G89.29 Active confirmed 8 3247622 Problem Supervision of other normal Z34.80 Ac tive confirm 986993679 Problem Anemia affecting in third trimester O99. 013 Active confirmed 77563670 Problem Anxiety with depression F41.8 Active confirmed 423056417 Problem Adjustment disorder with depressed mood F43.21 Active confirmed 74312221 Problem Generalized anxiety disorder F41.1 Active confirme d 82976775 Problem Major depressive disorder, recurrent, mild F33.0 Active confirmed 563274834 ALLERGIES No Known Allergies ENCOUNTERS from 1986 to 2020-09-21 Encounter Location Date Provider Diagnosis [facility] [address] [place] [address] Sep, Kaitlyn Dumont 34 weeks gestation o f Z3A.34 ; Supervision of with other poor reproductive or obstetric history, third trimester O09.293 ; Antepartum mental disorders of mother in third trimester O99.343 and Anxiety with depression F41.8 IMMUNIZATIONS Vaccine Route Administration Date Status TDAP [...] College Language: Question Answer Notes Languages spoken: Andorran Languages spoken: Andorran Alevism: Question Answer Notes Alevism 33 None Alevism 33 None Drug and Alcohol Question Answer [...] FOR REFERRAL No Information VITAL SIGNS Weight 197.4 lbs Sep, Weight-kg 89.54 kg Sep, Height 68.4 in Sep, BMI 29.665 kg/m2 Sep, Blood pressure systolic 124 mm Hg Sep, Blood pressure diastolic 82 mm Hg Sep, MEDICATIONS Medication SIG (Take, Route, Frequency, Duration) Notes Start Da te End Date Status PROzac 10 MG 1 capsule Orally Once a day for 30 day(s) Aug, Active Clomid 1 tab orally 5xmonth Not- Taking Diflucan 150 MG 1 tablet Orally once for 1 day(s) Jul, Not-Taking Wellbutrin SR 150 MG 1 tablet in the morning Orally Once a day f or 30 day(s) Mar, Not-Taking Stool Softener 100 MG 1 capsule as needed for constipation O rally twice per day Aug, Active ClomiPHENE Citrate 50 MG 2 tablets Orally Once a day for 5 day(s ) Jul, Not-Taking Ferrous Gluconate 324 (38 Fe) MG 1 tablet with water o r juice between meals Orally Twice per day for 30 day(s) Aug, Active Zoloft 50 MG 1 tablet Orally Once a day for 30 day(s) 2018 Not-Taking Ondansetron 4 MG 1 tablet on the tongue and a llow to dissolve Orally Once a day for 30 day(s) May, Not-Taking Omeprazole 40 MG 1 capsule 30 minutes before morning meal Orally Once a day for 30 day(s) Jul, Active 27-1 MG 1 tablet Orally Once a day Active Pepcid 20 MG 1 tablet at bedtime as needed Orally Once a day for 30 day(s) May, Not-Taking PROCEDURES from 1986 to 2020-09-21 Procedure Date Ordered Result Body Site non-stress test 2020-09-16 N/A RESULTS No Results REASON FOR VISIT 1WK PN / NST MEDICAL (GENERAL) HISTORY Type Description Date Medical History Anxiety and Depression Medical History Infertility Surgical History No Surgical history information Hospitalization History child Goals Section No Information Health Concerns No Information MEDICAL EQUIPMENT No Information MENTAL STATUS No Information FUNCTIONAL STATUS No Information ASSESSMENTS Encounter Date Diagnosis Assessment Notes Treatment Notes Treatm ent Clinical Notes Sep, 34 weeks gestation of (ICD-10 - Z3A.34 ) Sep, Supervision of wit h other poor reproductive or obstetric history, third trimester (ICD-10 - O09.293) Sep, Antepartum mental disorders of mother in third trimester (ICD-10 - O99.343) Sep, Anxiety with depression (ICD-10 - F41.8) PLAN OF TREATMENT Next Appt Details 1 Week Reason:PN Provider Name:Tyree Jara, 2020-09-24 11:20:00 AM, [address] [place] [address], [phone], Provider Name:Tyree Jara, 2020-10-02 10:40:00 AM, [address] [place] [address], [phone], Provider Name:Rigoberto Mendez, 11:00:00 AM, [address] [place] [address], [phone], Follow Up:1 WeekPN Insurance Providers Payer Name Payer Address Payer Phone Insured Name Patient Relati onship to Insured Coverage Start Date Coverage End Date AETNA [facility] [place] [address] [facility] [id number] JUNE GUERRERO
--- OUTSIDE RECORDS SUMMARY | 2020-10-10 07:12 | CCD ---
Author Author [facility] Organization [facility] Address Unknown Phone Unavailable Care Team Providers Care Deputy County Attorney Name Role Phone Rigoberto Mendez Unavailable PROBLEMS Type Condition ICD9-CM Code [id number] Code Onset Dates Condition S tatus SNOMED Code Notes Problem Recurrent major depressive disorder, in partial remission F33.41 Active 04144190 Problem Intractable migraine without aura and without st atus migrainosus G43.019 Active 985791251 Problem Major depressive disorder, recurrent, mild F33.0 Active 973781191 Problem Supervision of other normal Z34.80 Ac tive 158806618 Problem Other chronic pain G89.29 Active 72608510 Problem Anxiety with depression F41.8 Active 25378685 6 Problem Adjustment disorder with depressed mood F43.21 Active 97500894 Problem Generalized anxiety disorder F41.1 Active 218 89656 ALLERGIES No Known Allergies ENCOUNTERS from 1986 to 2020-07-31 Encounter Location Date Provider Diagnosis [facility] [address] [place] [address] Jul, Rigoberto Mendez Supervision of pregn sandi with other poor reproductive or obstetric history, second trimester O09.292 ; 26 weeks gestation of Z3A.26 and Heartburn R12 IMMUNIZATIONS No Information SOCIAL HISTORY Tobacco Use: Social History Observation Description Date Details (start date - stop date) Never Smoker Sex Assigned At : Social History Observation Description Sex Assigned At Unknown Education: Question Answer Notes Level of Education: Finished College Language: Question Answer Notes Languages spoken: Slovenian Languages spoken: Slovenian Druze: Question Answer Notes Druze 33 None Druze 33 None Drug and Alcohol Question Answer [...] FOR REFERRAL No Information VITAL SIGNS Weight 191 lbs Jul, Height 68.4 in Jul, BMI 28.703 kg/m2 Jul, Blood pressure systolic 134 mm Hg Jul, Blood pressure diastolic 80 mm Hg Jul, MEDICATIONS Medication SIG (Take, Route, Frequency, Duration) [...] a day Active PROCEDURES No Information RESULTS No Results REASON FOR VISIT 4WK PN MEDICAL (GENERAL) HISTORY Type Description Date Medical History Anxiety and Depression Medical History Infertility Surgical History No know Surgical history Hospitalization History child Goals Section No Information Health Concerns No Information MEDICAL EQUIPMENT No Information MENTAL STATUS No Information FUNCTIONAL STATUS No Information ASSESSMENTS Encounter Date Diagnosis Assessment Notes Treatment Notes Treatm ent Clinical Notes Jul, Supervision of wit h other poor reproductive or obstetric history, second trimester (ICD-10 - O09.292) Jul, 26 weeks gestation of (ICD-10 - Z3A.26 ) Jul, Heartburn (ICD-10 - R12) PLAN OF TREATMENT Medication Medication Name Sig Start Date Stop Date Omeprazole 40 MG 1 capsule 30 minutes before morning meal Orally Once a day for 30 day(s) Jul, Treatment Notes Test Name Order Date [facility] OBS COMPLETE US 2020-07-31 Next Appt Details 2 Weeks Reason:follow-up Provider Name:Rigoberto Mendez, 10:00:00 AM, [address] [place], [address], Follow Up:2 Weeksfollow-up Insurance Providers Payer Name Payer Address Payer Phone Insured Name Patient Relati onship to Insured Coverage Start Date Coverage End Date [facility]ET[employer] [facility] [address] [facility] [id number] JUNE GUERRERO
--- OUTSIDE RECORDS SUMMARY | 2020-10-10 07:12 | CCD ---
Author Author [facility] Organization [facility] Address Unknown Phone Unavailable Care Team Providers Care Talent Advisor Name Role Phone Rigoberto Mendez Unavailable PROBLEMS Type Condition ICD9-CM Code [id number] Code Onset Dates Condition S tatus SNOMED Code Notes Problem Recurrent major depressive disorder, in partial remission F33.41 Active 95507703 Problem Intractable migraine without aura and without st atus migrainosus G43.019 Active 183897085 Problem Major depressive disorder, recurrent, mild F33.0 Active 015646887 Problem Supervision of other normal Z34.80 Ac tive 997167981 Problem Other chronic pain G89.29 Active 92021198 Problem Anxiety with depression F41.8 Active 30452739 6 Problem Adjustment disorder with depressed mood F43.21 Active 62018179 Problem Generalized anxiety disorder F41.1 Active 218 53077 ALLERGIES No Known Allergies ENCOUNTERS from 1986 to 2020-08-21 Encounter Location Date Provider Diagnosis [facility] [address] [place] [address] Jul, Rigoberto Mendez Prior poor obstetric al history in third trimester, antepartum O09.293 and 29 weeks gestation of Z3A.29 IMMUNIZATIONS No Information SOCIAL HISTORY Tobacco Use: Social History Observation Description Date Details (start date - stop date) Never Smoker Sex Assigned At : Social History Observation Description Sex Assigned At Unknown Education: Question Answer Notes Level of Education: Finished College Language: Question Answer Notes Languages spoken: Sudanese Languages spoken: Sudanese Rastafari: Question Answer Notes Rastafari 33 None Rastafari 33 None Drug and Alcohol Question Answer [...] FOR REFERRAL No Information VITAL SIGNS Weight 192.4 lbs Jul, Weight-kg 87.27 kg Jul, Height 68.4 in Jul, BMI 28.913 kg/m2 Jul, Blood pressure systolic 110 mm Hg Jul, Blood pressure diastolic 74 mm Hg Jul, MEDICATIONS Medication SIG (Take, Route, Frequency, Duration) Notes Start Da te End Date Status Ondansetron 4 MG 1 tablet on the tongue and a llow to dissolve Orally Once a day for 30 day(s) May, Not-Taking Wellbutrin SR 150 MG 1 tablet in the morning Orally Once a day f or 30 day(s) Mar, Not-Taking 27-1 MG 1 tablet Orally Once a day Active Pepcid 20 MG 1 tablet at bedtime as needed Orally Once a day for 30 day(s) May, Not-Taking Zoloft 50 MG 1 tablet Orally Once a day for 30 day(s) 2018 Not-Taking Diflucan 150 MG 1 tablet Orally once for 1 day(s) Jul, Not-Taking Clomid 1 tab orally 5xmonth Not- Taking Omeprazole 40 MG 1 capsule 30 minutes before morning meal Orally Once a day for 30 day(s) Jul, Active ClomiPHENE Citrate 50 MG 2 tablets Orally Once a day for 5 day(s ) Jul, Not-Taking PROCEDURES No Information RESULTS No Results REASON FOR VISIT 2WK PN MEDICAL (GENERAL) HISTORY Type Description Date Medical History Anxiety and Depression Medical History Infertility Surgical History No know Surgical history Hospitalization History child Goals Section No Information Health Concerns No Information MEDICAL EQUIPMENT No Information MENTAL STATUS No Information FUNCTIONAL STATUS No Information ASSESSMENTS Encounter Date Diagnosis Assessment Notes Treatment Notes Treatm ent Clinical Notes Jul, Prior poor obstetrical histo ry in third trimester, antepartum (ICD- 10 - O09.293) Jul, 29 weeks gestation of (ICD-10 - Z3A.29 ) PLAN OF TREATMENT Treatment Notes Test Name Order Date [facility] OBS FOLLOW UP OR REPEAT 2020-08-21 Next Appt Details 2 Weeks Reason:follow-up Provider Name:Sary Teague, 2020-08-30 09:00:00 AM, [address] [place], [address], Follow Up:2 Weeksfollow-up Insurance Providers Payer Name Payer Address Payer Phone Insured Name Patient Relati onship to Insured Coverage Start Date Coverage End Date [facility]ETNA [facility] [address] [facility] [id number] JUNE GUERRERO
--- OUTSIDE RECORDS SUMMARY | 2020-10-10 07:12 | CCD ---
Author Author [facility] Organization [facility] Address Unknown Phone Unavailable Care Team Providers Care Carry In Worker Name Role Phone Rigoberto Mendez Unavailable PROBLEMS Type Condition ICD9-CM Code [id number] Code Onset Dates Condition S tatus SNOMED Code Notes Problem Recurrent major depressive disorder, in partial remission F33.41 Active 53656558 Problem Intractable migraine without aura and without st atus migrainosus G43.019 Active 801376188 Problem Other chronic pain G89.29 Active 79579051 Problem Supervision of other normal Z34.80 Ac tive 124651370 Problem Anemia affecting in third trimester O99. 013 Active 41078687 Problem Anxiety with depression F41.8 Active 15221505 6 Problem Adjustment disorder with depressed mood F43.21 Active 46391672 Problem Generalized anxiety disorder F41.1 Active 218 64482 Problem Major depressive disorder, recurrent, mild F33.0 Active 946943646 ALLERGIES No Known Allergies ENCOUNTERS from 1986 to 2020-09-13 Encounter Location Date Provider Diagnosis [facility] [address] [place] [address] Aug, Rigoberto Mendez Supervision of pregn sandi with other poor reproductive or obstetric history, third trimester O09.293 and 33 weeks gestation of Z3A.33 IMMUNIZATIONS Vaccine Route Administration Date Status TDAP [...] College Language: Question Answer Notes Languages spoken: Hong Konger Languages spoken: Hong Konger Caodaism: Question Answer Notes Caodaism 33 None Caodaism 33 None Drug and Alcohol Question Answer [...] FOR REFERRAL No Information VITAL SIGNS Weight 198 lbs Aug, Height 68.4 in Aug, BMI 29.755 kg/m2 Aug, Blood pressure systolic 152 mm Hg Aug, Blood pressure diastolic 82 mm Hg Aug, MEDICATIONS Medication SIG (Take, Route, Frequency, Duration) Notes Start Da te End Date Status Pepcid 20 MG 1 tablet at bedtime as needed Orally Once a day for 30 day(s) May, Not-Taking Zoloft 50 MG 1 tablet Orally Once a day for 30 day(s) 2018 Not-Taking Clomid 1 tab orally 5xmonth Not- Taking Wellbutrin SR 150 MG 1 tablet in the morning Orally Once a day f or 30 day(s) Mar, Not-Taking Omeprazole 40 MG 1 capsule 30 minutes before morning meal Orally Once a day for 30 day(s) Jul, Active PROzac 10 MG 1 capsule Orally Once a day for 30 day(s) Aug, Active ClomiPHENE Citrate 50 MG 2 tablets Orally Once a day for 5 day(s ) Jul, Not-Taking Stool Softener 100 MG 1 capsule as needed for constipation O rally twice per day Aug, Active Ondansetron 4 MG 1 tablet on the tongue and a llow to dissolve Orally Once a day for 30 day(s) May, Not-Taking Diflucan 150 MG 1 tablet Orally once for 1 day(s) Jul, Not-Taking Ferrous Gluconate 324 (38 Fe) MG 1 tablet with water o r juice between meals Orally Twice per day for 30 day(s) Aug, Active 27-1 MG 1 tablet Orally Once a day Active PROCEDURES No Information RESULTS No Results REASON FOR VISIT 1WK [...] history, third trimester (ICD-10 - O09.293) Aug, 33 weeks gestation of (ICD-10 - Z3A.33 ) PLAN OF TREATMENT Treatment Notes Test Name Order Date non-stress test 2020-09-13 Next Appt Details 1 Week Reason:COB Provider Name:Kaitlyn Dumont, 2020-09 10:20:00 AM, [address] [place] [address], [phone], Provider Name:Tyree Jara, 2020-09-24 11:20:00 AM, [address] [place] [address], [phone], Provider Name:Tyree Jara, 2020-10-02 10:40:00 AM, [address] [place] [address], [phone], Provider Name:Rigoberto Mendez, 11:00:00 AM, [address] [place] [address], [phone], Follow Up:1 WeekCOB Insurance Providers Payer Name Payer Address Payer Phone Insured Name Patient Relati onship to Insured Coverage Start Date Coverage End Date [facility]ETNA [facility] [address] [facility] [id number] JUNE GUERRERO
--- OUTSIDE RECORDS SUMMARY | 2020-10-10 07:12 | CCD ---
Author Author [facility] Organization [facility] Address Unknown Phone Unavailable Care Team Providers Care Spread Cutter Name Role Phone Tyree Jara Unavailable PROBLEMS Type Condition ICD9-CM Code [id number] Code Onset Dates Condition S tatus SNOMED Code Notes Problem Recurrent major depressive disorder, in partial remission F33.41 Active 60112667 Problem Intractable migraine without aura and without st atus migrainosus G43.019 Active 369206665 Problem Major depressive disorder, recurrent, mild F33.0 Active 164507467 Problem Supervision of other normal Z34.80 Ac tive 048526868 Problem Other chronic pain G89.29 Active 92659269 Problem Anxiety with depression F41.8 Active 20610371 6 Problem Adjustment disorder with depressed mood F43.21 Active 57282643 Problem Generalized anxiety disorder F41.1 Active 218 72735 ALLERGIES No Known Allergies ENCOUNTERS from 1986 to 2020-08-06 Encounter Location Date Provider Diagnosis [facility] [place] [address] Jul, Tyree Jara IMMUNIZATIONS No Information SOCIAL HISTORY Tobacco Use: Social History Observation Description Date Details (start date - stop date) Never Smoker Sex Assigned At : Social History Observation Description Sex Assigned At Unknown Education: Question Answer Notes Level of Education: Finished College Language: Question Answer Notes Languages spoken: Turkmen Languages spoken: Turkmen Confucianism: Question Answer Notes Confucianism 33 None Confucianism 33 None Drug and Alcohol Question Answer [...] Clomid 1 tab orally 5xmonth Not- Taking Ondansetron 4 MG 1 tablet on the tongue and a llow to dissolve Orally Once a day for 30 day(s) May, Not-Taking Omeprazole 40 MG 1 capsule 30 minutes before morning meal Orally Once a day for 30 day(s) Jul, Active ClomiPHENE Citrate 50 MG 2 tablets Orally Once a day for 5 day(s ) Jul, Not-Taking Diflucan 150 MG 1 tablet Orally once for 1 day(s) Jul, Active Wellbutrin SR 150 MG 1 tablet in [...] Information RESULTS No Results REASON FOR VISIT diflucan MEDICAL (GENERAL) HISTORY Type Description Date Medical History Anxiety and Depression Medical History Infertility Surgical History No know Surgical history Hospitalization History child Goals Section No Information Health Concerns No Information MEDICAL EQUIPMENT No Information MENTAL STATUS No Information FUNCTIONAL STATUS No Information ASSESSMENTS No Information PLAN OF TREATMENT Medication Medication Name Sig Start Date Stop Date Diflucan 150 MG 1 tablet Orally once for 1 day(s) Jul, Omeprazole 40 MG 1 capsule 30 minutes before morning meal Orally Once a day for 30 day(s) Jul, Next Appt Details Provider Name:Rigoberto Mendez, 01:00:00 PM, [address] [place], [address], Insurance Providers Payer Name Payer Address Payer Phone Insured Name Patient Relati onship to Insured Coverage Start Date Coverage End Date AETNA [facility] [address] [facility] [id number] JUNE GUERRERO
--- OUTSIDE RECORDS SUMMARY | 2020-10-10 07:13 | CCD ---
Author Author [facility] Organization [facility] Address Unknown Phone Unavailable Support Name Relationship Address Phone SELF EMPLOYED Next Of Kin [address] [place] [address] [place] [address] [address] TIJERINA Next Of Kin [address] [place] [address] UE Next Of Kin Unknown Unavailable [employer]ST BUY Next [place] [address] BERNA GONSALES Next Of Kin [address] [place] [id number] Derrek Tijerina [place] [address] [place] [id number] Re-disclosure Warning The records that you are about to access may contain information from federally-assisted alcohol or drug abuse programs. If such information is present, then the following federally mandated warning applies: This information has been disclosed to you from records protected by federal confidentiality rules (42 CFR part 2). The federal rules prohibit you from making any further disclosure of this information unless further disclosure is expressly permitted by the written consent of the person to whom it pertains or as otherwise permitted by 42 CFR part 2. A general authorization for the release of medical or other information is NOT sufficient for this purpose. The Federal rules restrict any use of the information to criminally investigate or prosecute any alcohol or drug abuse patient.The records that you are about to access may contain highly sensitive health information, the redisclosure of which is protected by Article 27-F of the [facility] Public Health law. If you continue you may have access to information: Regarding HIV / AIDS; Provided by facilities licensed or operated by the [facility] Office of Mental Health; or Provided by the [facility] Office for People With Developmental Disabilities. If such information is present, then the following [facility] mandated warning applies: This information has been disclosed to you from confidential records which are protected by state law. State law prohibits you from making any further disclosure of this information without the specific written consent of the person to whom it pertains, or as otherwise permitted by law. Any unauthorized further disclosure in violation of state law may result in a fine or retirement sentence or both. A general authorization for the release of medical or other information is NOT sufficient authorization for further disc losure. Family History Family Member Name Family Member Gender Family Member Status Date o f Status Description Data Source(s) Unknown Unknown Problem [facility] ([facility]) Encounters Encounter Providers Location Date Indications Data Source(s ) ( COB) [facility] [address] [place] [address] 09/24/2020 12:00:00 AM EST eCW1 ([facility]) ( COB) [facility] [address] [place] [address] 09/16/2020 12:00:00 AM EST eCW1 ([facility]) ( COB) [facility] [address] [place] [address] 09/09/2020 12:00:00 AM EST eCW1 ([facility]) Unknown [address] [facility] [address] 09/05/2020 12:00:00 AM EST eCW1 ([facility]) ( COB) [facility] [address] [place] [address] 08/30/2020 12:00:00 AM EST eCW1 ([facility]) ( ESTOB) [facility] Est OB [address] [place] [address] 08/12/2020 12:00:00 AM EST eCW1 ([facility]) Unknown [address] [facility] [address] 08/06/2020 12:00:00 AM EST eCW1 ([facility]) ( ESTOB) [facility] Est OB [address] [place] [address] 07/24/2020 12:00:00 AM EST eCW1 ([facility]) ( ESTOB) [facility] [address] [place] [address] 06/28/2020 12:00:00 AM EST eCW1 ([facility]) (WC ESTOB) [facility] [address] [place] [address] 05/28/2020 12:00:00 AM EDT eCW1 ([facility]) Unknown [address] [facility] [address] 05/07/2020 12:00:00 AM EDT eCW1 ([facility]) [address] [address] 10/05/2019 12:00:00 AM EST eCW1 ([facility]) [address] [address] 09/13/2019 12:00:00 AM EST eCW1 ([facility]) [address] [address] 09/07/2019 12:00:00 AM EST eCW1 ([facility]) [address] [address] 08/17/2019 12:00:00 AM EST eCW1 ([facility]) Immunizations Vaccine Date Status Description Data Source(s) Tdap 08/30/2020 10:34:00 AM EST completed e CW1 ([facility]) Tdap 08/30/2020 10:34:00 AM EST completed e CW1 ([facility]) Tdap 08/30/2020 10:34:00 AM EST completed e CW1 ([facility]) Tdap 08/30/2020 10:34:00 AM EST completed e CW1 ([facility]) Tdap 08/30/2020 10:34:00 AM EST completed e CW1 ([facility]) New in 2011. IIV4 08/30/2020 10:33:00 AM EST completed eCW1 ([facility]) New in 2011. IIV4 08/30/2020 10:33:00 AM EST completed eCW1 ([facility]) New in 2011. IIV4 08/30/2020 10:33:00 AM EST completed eCW1 ([facility]) New in 2011. IIV4 08/30/2020 10:33:00 AM EST completed eCW1 ([facility]) New in 2011. IIV4 08/30/2020 10:33:00 AM EST completed eCW1 ([facility]) Medications Medication Brand Name Start Date Product Form Dose Route Admi nistrative Instructions Pharmacy Instructions Status Indications Reaction Description Data Source(s) ferrous gluconate 324 MG Oral Tablet Ferrous Gluconate 324 (38 Fe) MG Ferrous Gluconate 324 (38 Fe) MG 08/30/2020 12:00:00 AM EST active Ferrous Gluconate 324 (38 Fe) MG eCW1 ([facility]) Fluoxetine 10 MG Oral Capsule [Prozac] PROzac 10 MG PROzac 1 0 MG 08/30/2020 12:00:00 AM EST 1.0 {capsule} active P ROzac 10 MG eCW1 ([facility]) Docusate Sodium 100 MG Oral Capsule Stool Softener [address] ool Softener 100 MG 08/30/2020 12:00:00 AM EST active Stool Softener 100 MG eCW1 ([facility]) Docusate Sodium 100 MG Oral Capsule Stool Softener [address] ool Softener 100 MG 08/30/2020 12:00:00 AM EST active Stool Softener 100 MG eCW1 ([facility]) Docusate Sodium 100 MG Oral Capsule Stool Softener [address] ool Softener 100 MG 08/30/2020 12:00:00 AM EST active Stool Softener 100 MG eCW1 ([facility]) Fluoxetine 10 MG Oral Capsule [Prozac] PROzac 10 MG PROzac 1 0 MG 08/30/2020 12:00:00 AM EST 1.0 {capsule} active P ROzac 10 MG eCW1 ([facility]) ferrous gluconate 324 MG Oral Tablet Ferrous Gluconate 324 (38 Fe) MG Ferrous Gluconate 324 (38 Fe) MG 08/30/2020 12:00:00 AM EST active Ferrous Gluconate 324 (38 Fe) MG eCW1 ([facility]) ferrous gluconate 324 MG Oral Tablet Ferrous Gluconate 324 (38 Fe) MG Ferrous Gluconate 324 (38 Fe) MG 08/30/2020 12:00:00 AM EST active Ferrous Gluconate 324 (38 Fe) MG eCW1 ([facility]) Fluoxetine 10 MG Oral Capsule [Prozac] PROzac 10 MG PROzac 1 0 MG 08/30/2020 12:00:00 AM EST 1.0 {capsule} active P ROzac 10 MG eCW1 ([facility]) Fluoxetine 10 MG Oral Capsule [Prozac] PROzac 10 MG PROzac 1 0 MG 08/30/2020 12:00:00 AM EST 1.0 {capsule} active P ROzac 10 MG eCW1 ([facility]) Docusate Sodium 100 MG Oral Capsule Stool Softener [address] ool Softener 100 MG 08/30/2020 12:00:00 AM EST active Stool Softener 100 MG eCW1 ([facility]) ferrous gluconate 324 MG Oral Tablet Ferrous Gluconate 324 (38 Fe) MG Ferrous Gluconate 324 (38 Fe) MG 08/30/2020 12:00:00 AM EST active Ferrous Gluconate 324 (38 Fe) MG eCW1 ([facility]) Docusate Sodium 100 MG Oral Capsule Stool Softener [address] ool Softener 100 MG 08/30/2020 12:00:00 AM EST active Stool Softener 100 MG eCW1 ([facility]) ferrous gluconate 324 MG Oral Tablet Ferrous Gluconate 324 (38 Fe) MG Ferrous Gluconate 324 (38 Fe) MG 08/30/2020 12:00:00 AM EST active Ferrous Gluconate 324 (38 Fe) MG eCW1 ([facility]) Fluoxetine 10 MG Oral Capsule [Prozac] PROzac 10 MG PROzac 1 0 MG 08/30/2020 12:00:00 AM EST 1.0 {capsule} active P ROzac 10 MG eCW1 ([facility]) Fluconazole 150 MG Oral Tablet [Diflucan] Diflucan 150 MG Di flucan 150 MG 08/06/2020 12:00:00 AM EST 1.0 {tablet} suspended Diflucan 150 MG eCW1 ([facility]) Fluconazole 150 MG Oral Tablet [Diflucan] Diflucan 150 MG Di flucan 150 MG 08/06/2020 12:00:00 AM EST 1.0 {tablet} suspended Diflucan 150 MG eCW1 ([facility]) Fluconazole 150 MG Oral Tablet [Diflucan] Diflucan 150 MG Di flucan 150 MG 08/06/2020 12:00:00 AM EST 1.0 {tablet} suspended Diflucan 150 MG eCW1 ([facility]) Fluconazole 150 MG Oral Tablet [Diflucan] Diflucan 150 MG Di flucan 150 MG 08/06/2020 12:00:00 AM EST 1.0 {tablet} suspended Diflucan 150 MG eCW1 ([facility]) Fluconazole 150 MG Oral Tablet [Diflucan] Diflucan 150 MG Di flucan 150 MG 08/06/2020 12:00:00 AM EST 1.0 {tablet} active Diflucan 150 MG eCW1 ([facility]) Fluconazole 150 MG Oral Tablet [Diflucan] Diflucan 150 MG Di flucan 150 MG 08/06/2020 12:00:00 AM EST 1.0 {tablet} suspended Diflucan 150 MG eCW1 ([facility]) Fluconazole 150 MG Oral Tablet [Diflucan] Diflucan 150 MG Di flucan 150 MG 08/06/2020 12:00:00 AM EST 1.0 {tablet} suspended Diflucan 150 MG eCW1 ([facility]) Omeprazole 40 MG Delayed Release Oral Capsule Omeprazole 40 MG 07/24/2020 12:00:00 AM EST active Omeprazo le 40 MG eCW1 ([facility]) Omeprazole 40 MG Delayed Release Oral Capsule Omeprazole 40 MG 07/24/2020 12:00:00 AM EST active Omeprazo le 40 MG eCW1 ([facility]) Omeprazole 40 MG Delayed Release Oral Capsule Omeprazole 40 MG 07/24/2020 12:00:00 AM EST active Omeprazo le 40 MG eCW1 ([facility]) Omeprazole 40 MG Delayed Release Oral Capsule Omeprazole 40 MG 07/24/2020 12:00:00 AM EST active Omeprazo le 40 MG eCW1 ([facility]) Omeprazole 40 MG Delayed Release Oral Capsule Omeprazole 40 MG 07/24/2020 12:00:00 AM EST active Omeprazo le 40 MG eCW1 ([facility]) Omeprazole 40 MG Delayed Release Oral Capsule Omeprazole 40 MG 07/24/2020 12:00:00 AM EST active Omeprazo le 40 MG eCW1 ([facility]) Omeprazole 40 MG Delayed Release Oral Capsule Omeprazole 40 MG 07/24/2020 12:00:00 AM EST active Omeprazo le 40 MG eCW1 ([facility]) Omeprazole 40 MG Delayed Release Oral Capsule Omeprazole 40 MG 07/24/2020 12:00:00 AM EST active Omeprazo le 40 MG eCW1 ([facility]) Omeprazole 40 MG Delayed Release Oral Capsule Omeprazole 40 MG 07/24/2020 12:00:00 AM EST active Omeprazo le 40 MG eCW1 ([facility]) Famotidine 20 MG Oral Tablet [Pepcid] Pepcid 20 MG Pepcid 20 MG 05/28/2020 12:00:00 AM EDT 1.0 {tablet_at_bedtime_as_needed} suspended Pepcid 20 MG eCW1 ([facility]) Famotidine 20 MG Oral Tablet [Pepcid] Pepcid 20 MG Pepcid 20 MG 05/28/2020 12:00:00 AM EDT 1.0 {tablet_at_bedtime_as_needed} active Pepcid 20 MG eCW1 ([facility]) Famotidine 20 MG Oral Tablet [Pepcid] Pepcid 20 MG Pepcid 20 MG 05/28/2020 12:00:00 AM EDT 1.0 {tablet_at_bedtime_as_needed} suspended Pepcid 20 MG eCW1 ([facility]) Famotidine 20 MG Oral Tablet [Pepcid] Pepcid 20 MG Pepcid 20 MG 05/28/2020 12:00:00 AM EDT 1.0 {tablet_at_bedtime_as_needed} active Pepcid 20 MG eCW1 ([facility]) Ondansetron 4 MG Disintegrating Oral Tablet Ondansetron 4 MG 05/28/2020 12:00:00 AM EDT 1.0 {tablet_on_the_tongue_and_allow_to_dissolve} suspended Ondansetron 4 MG eCW1 ([facility]) Ondansetron 4 MG Disintegrating Oral Tablet Ondansetron 4 MG 05/28/2020 12:00:00 AM EDT 1.0 {tablet_on_the_tongue_and_allow_to_dissolve} suspended Ondansetron 4 MG eCW1 ([facility]) Famotidine 20 MG Oral Tablet [Pepcid] Pepcid 20 MG Pepcid 20 MG 05/28/2020 12:00:00 AM EDT 1.0 {tablet_at_bedtime_as_needed} suspended Pepcid 20 MG eCW1 ([facility]) Famotidine 20 MG Oral Tablet [Pepcid] Pepcid 20 MG Pepcid 20 MG 05/28/2020 12:00:00 AM EDT 1.0 {tablet_at_bedtime_as_needed} active Pepcid 20 MG eCW1 ([facility]) Ondansetron 4 MG Disintegrating Oral Tablet Ondansetron 4 MG 05/28/2020 12:00:00 AM EDT 1.0 {tablet_on_the_tongue_and_allow_to_dissolve} active Ondansetron 4 MG eCW1 ([facility]) Ondansetron 4 MG Disintegrating Oral Tablet Ondansetron 4 MG 05/28/2020 12:00:00 AM EDT 1.0 {tablet_on_the_tongue_and_allow_to_dissolve} suspended Ondansetron 4 MG eCW1 ([facility]) Ondansetron 4 MG Disintegrating Oral Tablet Ondansetron 4 MG 05/28/2020 12:00:00 AM EDT 1.0 {tablet_on_the_tongue_and_allow_to_dissolve} suspended Ondansetron 4 MG eCW1 ([facility]) Famotidine 20 MG Oral Tablet [Pepcid] Pepcid 20 MG Pepcid 20 MG 05/28/2020 12:00:00 AM EDT 1.0 {tablet_at_bedtime_as_needed} suspended Pepcid 20 MG eCW1 ([facility]) Famotidine 20 MG Oral Tablet [Pepcid] Pepcid 20 MG Pepcid 20 MG 05/28/2020 12:00:00 AM EDT 1.0 {tablet_at_bedtime_as_needed} suspended Pepcid 20 MG eCW1 ([facility]) Ondansetron 4 MG Disintegrating Oral Tablet Ondansetron 4 MG 05/28/2020 12:00:00 AM EDT 1.0 {tablet_on_the_tongue_and_allow_to_dissolve} suspended Ondansetron 4 MG eCW1 ([facility]) Famotidine 20 MG Oral Tablet [Pepcid] Pepcid 20 MG Pepcid 20 MG 05/28/2020 12:00:00 AM EDT 1.0 {tablet_at_bedtime_as_needed} suspended Pepcid 20 MG eCW1 ([facility]) Ondansetron 4 MG Disintegrating Oral Tablet Ondansetron 4 MG 05/28/2020 12:00:00 AM EDT 1.0 {tablet_on_the_tongue_and_allow_to_dissolve} suspended Ondansetron 4 MG eCW1 ([facility]) Ondansetron 4 MG Disintegrating Oral Tablet Ondansetron 4 MG 05/28/2020 12:00:00 AM EDT 1.0 {tablet_on_the_tongue_and_allow_to_dissolve} suspended Ondansetron 4 MG eCW1 ([facility]) Ondansetron 4 MG Disintegrating Oral Tablet Ondansetron 4 MG 05/28/2020 12:00:00 AM EDT 1.0 {tablet_on_the_tongue_and_allow_to_dissolve} suspended Ondansetron 4 MG eCW1 ([facility]) Ondansetron 4 MG Disintegrating Oral Tablet Ondansetron 4 MG 05/28/2020 12:00:00 AM EDT 1.0 {tablet_on_the_tongue_and_allow_to_dissolve} suspended Ondansetron 4 MG eCW1 ([facility]) Famotidine 20 MG Oral Tablet [Pepcid] Pepcid 20 MG Pepcid 20 MG 05/28/2020 12:00:00 AM EDT 1.0 {tablet_at_bedtime_as_needed} active Pepcid 20 MG eCW1 ([facility]) Insurance Providers Payer name Policy type / Coverage type Policy ID Covered constitution party ID Covered constitution party's relationship to donaldson Policy Donaldson Plan Information [employer] [place] [id number] SP [id number] [employer] [place] [place] [id number] HU2 [id number] Lifetime Benefits [place] Medigap Part B [id number] Family D ependent [id number] [employer] Commercial [id number] Family Dependent W [id number] [employer] [place] [id number] HU2 [id number] Aetna Ppo/Pos/Nap/MC Commercial [id number] Family Dependent [id number] Lifetime Benefits [place] Medigap Part B [id number] Family D ependent [id number] Aetna Commercial [id number] Family Dependent W [id number] Lifetime Benefits [place] Medigap Part B [id number] Family D ependent [id number] [employer]na Commercial [id number] Family Dependent W [id number] [employer] [place] [id number] P [id number] Lifetime Benefits [place] Health Maintenance Organization (HMO) Family Dependent LIF[employer]IME BENEFIT [employer]UTIONS [id number] HU2 [id number] SELF PAY UNAVAILABLE UNAVAILA BLE [facility] [id number] SP [id number] [facility] [id number] 2 [id number] [facility] [id number] SP [id number] [facility] [id number] SP [id number] Problems, Conditions, and Diagnoses Code Display Name Description Problem Type Effective Dates Data Source(s) O99.013 [id number] Anemia affecting in third trime ster Problem 08/30/2020 12:00:00 AM EST eCW1 ([facility]) Z34.80 care Supervision of other normal Neli richter 02/26/2020 12:00:00 AM EDT eCW1 ([facility]) Surgeries/Procedures Procedure Description Date Indications Data Source(s) NONSTRESS TEST 09/24/2020 12:00:00 AM EST eCW1 ([facility]) NONSTRESS TEST 09/16/2020 12:00:00 AM EST eCW1 ([facility]) NONSTRESS TEST 08/30/2020 12:00:00 AM EST eCW1 ([facility]) INFLUENZA VIRUS VACC SPLIT PRSRV FREE 3 YRS/> IM 08/30 12:00:00 AM EST eCW1 ([facility]) Immunization: Boostrix 0.5mL IM (TDAP) 08/30/2020 12:0 0:00 AM EST eCW1 ([facility]) PSYTX W PT 45 MINUTES 09/13/2019 12:00:00 AM EST eCW1 ([facility]) Results ID Date Data Source Glucose Challenge Test 1 Hour 07/24/2020 12:00:00 AM EST eCW 1 ([facility]) Name Value Range Interpretation Code Description Data Joan rce(s) Supporting Document(s) 97 LESS THAN 140 GLUCOSE CHALLENGE TEST 1 HOUR eCW1 ([facility]) ID Date Data Source CBC - Complete Blood Count 07/24/2020 12:00:00 AM EST eCW1 ( [facility]) Name Value Range Interpretation Code Description Data Joan rce(s) Supporting Document(s) 10.4 12.0-15.5 HEMOGLOBIN eCW1 ([facility]) 3.71 4.00-5.40 RED BLOOD COUNT eCW1 ([facility]) 8.7 4.0-10.0 WHITE BLOOD COUNT eCW1 ([facility]) 33.0 36.0-47.0 HEMATOCRIT eCW1 ([facility]) 31.5 32.0-36.5 MEAN CORPUSCULAR HGB CONC eCW1 ([facility]) 28.0 27.0-33.0 MEAN CORPUSCULAR HEMOGLOB IN eCW1 ([facility]) 88.9 80.0-96.0 MEAN CORPUSCULAR VOLUME e CW1 ([facility]) 272 150-450 PLATELET COUNT, AUTOMATED eCW1 ([facility]) 12.5 11.5-14.5 RED CELL DISTRIBUTION WID TH eCW1 ([facility]) ID Date Data Source Type and Screen (D Rh Antibody Screen) 07/24/2020 12:00:00 A M EST eCW1 ([facility]) Name Value Range Interpretation Code Description Data Joan rce(s) Supporting Document(s) A POSITIVE BLOOD TYPE eCW1 ([facility]) NEGATIVE AB SCREEN (INDIRECT COOMB S)VIS eCW1 ([facility]) Procedure Social History Code Duration Value Status Description Data Source(s ) Smoking 09/19/2020 12:00:00 AM EST Never Smoker completed Never S moker eCW1 ([facility]) Smoking 09/19/2020 12:00:00 AM EST Never Smoker completed Never S moker eCW1 ([facility]) Smoking 09/05/2020 12:00:00 AM EST Never Smoker completed Never S moker eCW1 ([facility]) Smoking 09/05/2020 12:00:00 AM EST Never Smoker completed Never S moker eCW1 ([facility]) Smoking 09/05/2020 12:00:00 AM EST Never Smoker completed Never S moker eCW1 ([facility]) Smoking 08/12/2020 12:00:00 AM EST Never Smoker completed Never S moker eCW1 ([facility]) Smoking 07/22/2020 12:00:00 AM EST Never Smoker completed Never S moker eCW1 ([facility]) Smoking 07/22/2020 12:00:00 AM EST Never Smoker completed Never S moker eCW1 ([facility]) Smoking 07/22/2020 12:00:00 AM EST Never Smoker completed Never S moker eCW1 ([facility]) Smoking 06/17/2020 12:00:00 AM EST Never Smoker completed Never S moker eCW1 ([facility]) Smoking 02/28/2020 12:00:00 AM EDT Never Smoker completed Never S moker eCW1 ([facility]) Vital Signs ID Date Data Source UNK Name Value Range Interpretation Code Description Data Source(s) Diastolic blood pressure 94 mm[Hg] 94 mm[Hg] eCW1 ([facility]) Systolic blood pressure 138 mm[Hg] 138 mm[Hg] e CW1 ([facility]) Body mass index (BMI) [Ratio] 30.055 kg/m2 30.0 55 kg/m2 eCW1 ([facility]) Body height 68.4 [in_i] 68.4 [in_i] eCW1 ([facility]) Body weight 90.72 kg 90.72 kg eCW1 ([facility]) Body weight 200 [lb_av] 200 [lb_av] eCW1 ([facility]) Diastolic blood pressure 82 mm[Hg] 82 mm[Hg] eCW1 ([facility]) Systolic blood pressure 124 mm[Hg] 124 mm[Hg] e CW1 ([facility]) Body mass index (BMI) [Ratio] 29.665 kg/m2 29.6 65 kg/m2 eCW1 ([facility]) Body height 68.4 [in_i] 68.4 [in_i] eCW1 ([facility]) Body weight 89.54 kg 89.54 kg eCW1 ([facility]) Body weight 197.4 [lb_av] 197.4 [lb_av] eCW1 ([facility]) Diastolic blood pressure 82 mm[Hg] 82 mm[Hg] eCW1 ([facility]) Systolic blood pressure 152 mm[Hg] 152 mm[Hg] e CW1 ([facility]) Body mass index (BMI) [Ratio] 29.755 kg/m2 29.7 55 kg/m2 eCW1 ([facility]) Body height 68.4 [in_i] 68.4 [in_i] eCW1 ([facility]) Body weight 198 [lb_av] 198 [lb_av] eCW1 ([facility]) Diastolic blood pressure 76 mm[Hg] 76 mm[Hg] eCW1 ([facility]) Systolic blood pressure 134 mm[Hg] 134 mm[Hg] e CW1 ([facility]) Body mass index (BMI) [Ratio] 29.544 kg/m2 29.5 44 kg/m2 eCW1 ([facility]) Body height 68.4 [in_i] 68.4 [in_i] eCW1 ([facility]) Body weight 196.6 [lb_av] 196.6 [lb_av] eCW1 ([facility]) Diastolic blood pressure 74 mm[Hg] 74 mm[Hg] eCW1 ([facility]) Systolic blood pressure 110 mm[Hg] 110 mm[Hg] e CW1 ([facility]) Body mass index (BMI) [Ratio] 28.913 kg/m2 28.9 13 kg/m2 eCW1 ([facility]) Body height 68.4 [in_i] 68.4 [in_i] eCW1 ([facility]) Body weight 87.27 kg 87.27 kg W1 ([facility]) Body weight 192.4 [lb_av] 192.4 [lb_av] eCW1 ([facility]) Diastolic blood pressure 80 mm[Hg] 80 mm[Hg] eCW1 ([facility]) Systolic blood pressure 134 mm[Hg] 134 mm[Hg] e CW1 ([facility]) Body mass index (BMI) [Ratio] 28.703 kg/m2 28.7 03 kg/m2 W1 ([facility]) Body height 68.4 [in_i] 68.4 [in_i] eCW1 ([facility]) Body weight 191 [lb_av] 191 [lb_av] eCW1 ([facility]) Diastolic blood pressure 70 mm[Hg] 70 mm[Hg] eCW1 ([facility]) Systolic blood pressure 110 mm[Hg] 110 mm[Hg] e CW1 ([facility]) Body mass index (BMI) [Ratio] 28.072 kg/m2 28.0 72 kg/m2 eCW1 ([facility]) Body height 68.4 [in_i] 68.4 [in_i] eCW1 ([facility]) Body weight 84.73 kg 84.73 kg eCW1 ([facility]) Body weight 186.8 [lb_av] 186.8 [lb_av] eCW1 ([facility]) Diastolic blood pressure 82 mm[Hg] 82 mm[Hg] eCW1 ([facility]) Systolic blood pressure 132 mm[Hg] 132 mm[Hg] e CW1 ([facility]) Body mass index (BMI) [Ratio] 27.561 kg/m2 27.5 61 kg/m2 eCW1 ([facility]) Body height 68.4 [in_i] 68.4 [in_i] eCW1 ([facility]) Body weight 83.19 kg 83.19 kg eCW1 ([facility]) Body weight 183.4 [lb_av] 183.4 [lb_av] eCW1 ([facility]) Patient Treatment Plan of Care Planned Activity Planned Date Details Description Data Source (s) ferrous gluconate 324 MG Oral Tablet 08/30/2020 12:00:00 AM EST eCW1 ([facility]) Docusate Sodium 100 MG Oral Capsule 08/30/2020 12:00:00 AM EST eCW1 ([facility]) Fluoxetine 10 MG Oral Capsule [Prozac] 08/30/2020 12:00:00 AM EST eCW1 ([facility]) ferrous gluconate 324 MG Oral Tablet 08/30/2020 12:00:00 AM EST eCW1 ([facility]) Docusate Sodium 100 MG Oral Capsule 08/30/2020 12:00:00 AM EST eCW1 ([facility]) Fluoxetine 10 MG Oral Capsule [Prozac] 08/30/2020 12:00:00 AM EST eCW1 ([facility]) Fluconazole 150 MG Oral Tablet [Diflucan] 08/06/2020 12:00:00 AM ES T eCW1 ([facility]) Omeprazole 40 MG Delayed Release Oral Capsule 07/24/2020 12:00:00 A M EST eCW1 (Formerly [facility]) Omeprazole 40 MG Delayed Release Oral Capsule 07/24/2020 12:00:00 A M EST eCW1 (Formerly [facility]) Omeprazole 40 MG Delayed Release Oral Capsule 07/24/2020 12:00:00 A M EST eCW1 (Formerly [facility]) Famotidine 20 MG Oral Tablet [Pepcid] 05/28/2020 12:00:00 AM EDT eCW1 (Formerly [facility]) Ondansetron 4 MG Disintegrating Oral Tablet 05/28/2020 12:00:00 AM EDT eCW1 (Formerly [facility])
[2020-10-10] MEDS ORDERED: LACTATED RINGER'S 1000 ML IV STA (08:27)
[2020-10-10] MEDS ORDERED: miSOPROStol 50MCG 1/2 TABLET PO ONE (09:15)
[2020-10-10 09:24] LABS: HEMATOCRIT 32.6 % (36.0-47.0); HEMOGLOBIN 10.2 g/dl (12.0-15.5); MEAN CORPUSCULAR HEMOGLOBIN 25.8 pg (27.0-33.0); MEAN CORPUSCULAR HGB CONC 31.3 g/dl (32.0-36.5); MEAN CORPUSCULAR VOLUME 82.3 fl (80.0-96.0); PLATELET COUNT, AUTOMATED 307 10^3/uL (150-450); RED BLOOD COUNT 3.96 10^6/uL (4.00-5.40); WHITE BLOOD COUNT 7.8 10^3/uL (4.0-10.0)
[2020-10-10 09:55] LABS: ALT/SGPT 17 U/L (12-78); BILIRUBIN,TOTAL 0.3 MG/DL (0.2-1.0); CREATININE FOR GFR 0.67 MG/DL (0.55-1.30); GLOMERULAR FILTRATION RATE > 60.0 (>60); LDH LACTATE DEHYDROGENASE 142 U/L (84-246); URIC ACID 4.2 MG/DL (2.6-6.0)
--- NOTE | 2020-10-10 09:58 | HPEPDOC ---
Obstetrical History & Physical General Date of Admission Oct 10, 2020 at 07:09 History of Present Illness Patient is a 34-year-old female with past medical history of third trime ster bleeding, gestational hypertension, and past intrauterine demise at 36.2 weeks who presents to labor and delivery for planned induction of labor. She has no other complaints at this time. Chief Complaint: Induction of labor Information Provided By: Patient Age: 34 : 4 Term: 2 Pre-term: 1 Abortions: 0 Livin Care Care: Good Care Number of Visits: 11 Dating Final EDC: Oct 25, 2020 Final EDC by: LMP LMP: Jan 19, 2020 Weeks + Days: 37 (+5) EGA at Admission: 37 Antepartum Course Diagnos(e)s Third trimester bleeding at 32 weeks, resolved without recurrence Past Medical History Past Obstetrical History #1: Past Obstetrical History: Primgravida Date of Delivery: Jun 16, 2013 Gestation: 39 Type of Delivery: Spontaneous Vaginal Del. Sex of : Female Weight of Infant (grams): 6 Complications: No Past Obstetrical History #2: Past Obstetrical History: Multigravida Date of Delivery: Aug 16, 2014 Gestation: 36.2 Type of Delivery: Spontaneous Vaginal Del. Sex of Infant: Male Weight of (grams): 7 Complications: Yes (IUFD) Past Obstetrical History #3: Past Obstetrical History: Multigravida Date of Delivery: Sep 08, 2016 Gestation: 38.3 Type of Delivery: Spontaneous Vaginal Del. Sex of : Male Complications: No [employer] History: History of STD (Chlamydia) Past Medical History Medical History Anxiety, depression, infertility Surgical History: Denies/None Family History Significant Family History: Diabetes, Hypertension Family History Father has hypertension, diabetes Social History Marital Status: Family situation: Spouse/partner home Psychosocial History: Anxiety, Depression * Smoker: non-smoker Alcohol: Denies Drugs: denies Abuse Violence Screening Have you been hit/kicked/slapp: No Have you been sexually assault: No Imunizations Tdap status: current Influenza Status: current Allergies Coded Allergies: No Known Allergies (Unverified , 10/10/20) Medications Scheduled Fluoxetine HCl (Prozac) 10 Mg Capsule, 1 CAP PO DAILY Omeprazole (Omeprazole) 40 Mg Capsule.dr, 40 MG PO DAILY No.137/Iron/Folic Acd ( Vitamin Tablet) 1 Each Tablet, 1 TAB PO DAILY Physical Examination Physical Examination GENERAL: Patient appears stated age, comfortable, and is sitting in bed in the presence of her . BREAST: Gravid. GYNECOLOGIC: No bleeding. HEART RATE: Regular rate and rhythm. No murmurs, rubs, or gallops. LUNGS: Clear to auscultation bilaterally. No wheezes, rales, or rhonchi. Symmetr ical chest rise. PSYCHIATRIC: Patient is calm and cooperative. Alert and oriented x3. Vital Signs/I&O Vital Signs Date Time Temp Pulse Resp B/P (MAP) Pulse Ox O2 Delivery O2 Flow Rate FiO2 10/10/20 07:27 98.7 90 18 134/86 (102) Laboratory Data 24[facility] Laboratory Tests 2 10/10/20 07:17: Serology Scanned Report Hepatitis B Testing Vaginal Examination Dilation: None Station: -3 Cervical Consistency: Firm Cervical Position: Posterior Assessment Heart Rate (FHR): 150 Assessment/Plan Assessment Saranya Duncan is a 34-year-old (G)4 para (P)2-1-0-2 at 37+5 weeks by LMP. Presents to Labor and Delivery (L&D) for induction. Plan Admit and orient. Animal Physiologist and consent. Diet: Clear liquids. Group B Streptococcus (GBS) negative. Labs and intravenous (IV) per unit protocol. Counseled on induction of labor (IOL). Misoprostol 50mcg sublingual x1 ordered. Lactated Ringers (LR): Bolus 1000 mL, then at 125 mL/hr. Anticipate normal spontaneous delivery (). C-S as appropriate. IVORY YEE-4 Oct 10, 2020 08:33
[2020-10-10 10:47] LABS: CREATININE,RANDOM URINE 40.1 MG/DL; TOTAL PROTEIN,RANDOM URINE 5.7 MG/DL (0.0-12.0)
[2020-10-10] MEDS ORDERED: OXYTOCIN DRIP 30 UNITS in IV 1 EA IV SCH (17:40)
[2020-10-10] MEDS: LR 1,000 ML IV SCH ×2 (18:00→20:57)
[2020-10-10] MEDS ORDERED: FENTANYL 2MCG/ML ROPIVACAINE 0.2% IN 0.9% NACL 100ML IVBAG As Ordered ONE (20:28)
[2020-10-10] MEDS ORDERED: FENTANYL/ROPIVACAINE/NACL BAG 100 ML EPIDURAL SCH (20:55)
[2020-10-10] MEDS ORDERED: EPIDURAL/PCA KEYS XX PRN (20:55)
[2020-10-10] MEDS ORDERED: REFRIGERATOR IV KEYS XX PRN (20:55)
[2020-10-10] MEDS ORDERED: EPIDURAL COMMENT XX SCH (20:55)
[2020-10-10] MEDS ORDERED: LACTATED RINGER'S 1000 ML IV PRN (20:55)
[2020-10-10] MEDS ORDERED: ePHEDrine SULFATE 25 MG/5 ML(5MG/ML) SYRINGE IV PRN (20:55)
[2020-10-10] MEDS ORDERED: ONDANSETRON 4MG/2ML VIAL IV PRN (20:55)
[2020-10-10] MEDS ORDERED: diphenhydrAMINE 50MG/ML VIAL (J1200) IV PRN (20:55)
[2020-10-10] MEDS ORDERED: NALOXONE INJ 0.4MG/1ML VIAL (J2310 PER 1MG) IV PRN (20:55)
--- NOTE | 2020-10-10 22:46 | IPNPDOC ---
Obstetrical Progress Note Date of Service Oct 10, 2020 Subjective Patient comfortable with epidural. No LOF/VB. Objective Vital Signs Date Time Temp Pulse Resp B/P (MAP) Pulse Ox O2 Delivery O2 Flow Rate FiO2 10/10/20 21:19 98.3 75 120/77 (91) 10/10/20 15:18 16 Assessment Heart Rate Tracing: Category I Tocometer Frequency: every 2-5 min. Sterile Vaginal Examination Dilation: 5 cm Effacement (%): 90% Station: -2 (AROM, clear) Cervical Consistency: Soft Cervical Position: Anterior Postion/Presentation: Cephalic presentation Assessment and Plan Status: Reassuring Anticipate: Vaginal Delivery Additional Comments Reassuring maternal and status. Continue Pitocin. AROM, clear (copious amounts of fluid). CLAUDE DREW DO Oct 10, 2020 22:46
[2020-10-11] VITALS (9 sets, daily range): BP systolic 104–148; BP diastolic 56–94
[2020-10-11] MEDS ORDERED: OXYTOCIN DRIP 30 UNITS in IV 1 EA IV SCH (02:29)
[2020-10-11] MEDS ORDERED: LR 1,000 ML IV SCH (02:29)
[2020-10-11] MEDS ORDERED: ACETAMINOPHEN TAB 650MG DOSE (2X325MG) PO PRN (02:30)
[2020-10-11] MEDS ORDERED: IBUPROFEN 600MG TAB PO PRN (02:30)
[2020-10-11] MEDS ORDERED: ONDANSETRON 4MG/2ML VIAL IV PRN (02:30)
[2020-10-11] MEDS ORDERED: RHOGAM 300 MCG (1500 IU) INJ (J2790) IM SCH (02:30)
[2020-10-11] MEDS ORDERED: DOCUSATE SODIUM 100MG CAPSULE PO PRN (02:30)
[2020-10-11] MEDS ORDERED: MEASLES,MUMPS,RUBELLA VACCINE INJ (MMR-II) (90707) SC SCH (02:30)
[2020-10-11] MEDS ORDERED: DIBUCAINE 1% OINTMENT 30GM TOP PRN (02:30)
--- NOTE | 2020-10-11 02:33 | DNPDOC ---
[facility] Delivery Note Delivery Note DATE OF DELIVERY: 10/11/2020 TIME OF DELIVERY: 217 Spontaneous vaginal delivery. SECURITY SYSTEM ENGINEER: Dr. Rigoberto Mendez DO FACOG ANESTHESIA: Epidural LACERATION: None ESTIMATED BLOOD LOSS:. 200 mL. FINDINGS: 6 pound 4 ounce (2830g) male named [place], Score, 8 and 8. DELIVERY SUMMARY: The active phase and second stage of labor progressed in normal fashion.. She received Pitocin augmentation throughout her labor course. The head delivered in the JAZLYN position, and restituted LOT. No nuchal cord was noted. The anterior shoulder delivered with gentle downward guidance and the remainder of the body delivered with ease. The baby was placed on the patient's chest. Delayed cord clamping occurred for approximately 1 minute. The cord was then doubly clamped and cut. IV Pitocin was bolused to actively manage the third stage of labor. The placenta delivered intact without any difficulty within 10 minutes of delivery. The uterine fundus was noted to be firm and 2 cm below the umbilicus. The cervix, vagina, vulva and perineum were inspected. No lacerations. Excellent hemostasis was noted. Sponge, needle and instrument counts were correct per protocol. DO YANN Fonseca JONATHAN R. DO Oct 11, 2020 02:33
[2020-10-11] MEDS: PRENATAL VITAMINS CHEWABLE TABLET PO SCH (08:06)
[2020-10-11] MEDS: IBUPROFEN 800 MG TAB PO PRN ×2 (08:07→18:09)
[2020-10-11] MEDS: ACETAMINOPHEN 500 MG TAB PO PRN ×2 (14:08→20:27)
[2020-10-12] MEDS: IBUPROFEN 800 MG TAB PO PRN (03:08)
[2020-10-12 06:00] VITALS: BP 128/64
[2020-10-12] MEDS ORDERED: FLUO20CA22 PO (07:33)
[2020-10-12] MEDS: PRENATAL VITAMINS CHEWABLE TABLET PO SCH (08:42)
[2020-10-12] MEDS ORDERED: FLUoxetine 20 MG CAP PO SCH (09:00)
== END 2020-10-12 14:25 | disposition home or self-care (01) | DRG 807 ==
LOC: M LDI 07:09 → M OBS 10-11 04:01
PROVIDERS: ADMIT Obstetrics & Gynecology; ATTEND Obstetrics & Gynecology
PROC: 3E0P7GC Introduction of Other Therapeutic Substance into Female Reproductive, Via Natural or Artificial Opening (ICD-10-PCS; 2020-10-10)
PROC: 10907ZC Drainage of Amniotic Fluid, Therapeutic from Products of Conception, Via Natural or Artificial Opening (ICD-10-PCS; 2020-10-10)
PROC: 10E0XZZ Delivery of Products of Conception, External Approach (ICD-10-PCS; principal; 2020-10-11)
DX: O13.4 Gestational [pregnancy-induced] hypertension without significant proteinuria, complicating childbirth (principal); Z37.0 Single live birth; Z3A.37 37 weeks gestation of pregnancy

== ENCOUNTER 2020-11-19 17:19 | Emergency (ER) | payer OTHER ==
[~2020-11-19] VITALS: Ht 170.2 cm; Wt 88.5 kg
[2020-11-19 17:19] VITALS: BP 163/95
[~2020-11-19 17:19] MED LIST changes: +FLUO20CA22 PO
--- NOTE | 2020-11-19 18:30 | REP ---
INDICATION: injury, fall COMPARISON: None. TECHNIQUE: There are four views. FINDINGS: There is soft tissue edema dorsally. There is no fracture or dislocation. Mineralization and joint spaces are normal. There are no calcifications or foreign bodies. IMPRESSION: Soft tissue edema dorsally. No fracture or dislocation. . <Electronically signed by Bryan Gan > 11/19/20 [id number]
--- NOTE | 2020-11-19 18:31 | REP ---
INDICATION: injury, fall. COMPARISON: None. TECHNIQUE: There are three views. FINDINGS: The sacroiliac articulations are unremarkable. The sacral a ala and foramen are unremarkable. Mineralization is normal. No fracture is identified. There are no calcifications. IMPRESSION: Negative sacrum and coccyx. There is no evidence of fracture. <Electronically signed by Bryan Gan > 11/19/20 [id number]
[2020-11-19] MEDS ORDERED: IBUP-1022 PO (18:44)
[2020-11-19] MEDS ORDERED: IBUPROFEN 600MG TAB PO ONE (18:45)
== END 2020-11-19 18:55 | disposition home or self-care (01) ==
LOC: M ED 17:19
DX: S66.912A Strain of unspecified muscle, fascia and tendon at wrist and hand level, left hand, initial encounter (principal); S30.0XXA Contusion of lower back and pelvis, initial encounter; V09.3XXA Pedestrian injured in unspecified traffic accident, initial encounter; Y92.410 Unspecified street and highway as the place of occurrence of the external cause; Y93.9 Activity, unspecified; Y99.9 Unspecified external cause status; Z79.899 Other long term (current) drug therapy